=== PATIENT | female | born 1960 | race African-American/Black ===

== ENCOUNTER 2017-06-30 19:04 | Emergency (ER) ==
[2017-06-30 19:13] VITALS: BP 190/114; TEMP 98.5; BMI 43.7
[2017-06-30] MEDS ORDERED: NORCO 5-325 PO STA (19:32)
--- NOTE | 2017-06-30 19:35 | ED.PDOC ---
General ED Provider: Dr. LAURA TAVERA-ER Chief Complaint: Knee Pain/Injury Stated Complaint: my knee has been hurting since april Time Seen by Physician: 19:33 Mode of Arrival: Wheelchair Information Source: Patient, Family Exam Limitations: No limitations [facility] Nursing and Triage Documentation Reviewed and Agree: Yes Musculoskeletal Complaint Exam - Knee Pain Complaint/Exam Mechanism of Injury: Reports: No known trauma Onset/Duration: 2mos Symptoms Are: Still present Onset of Pain: Reports: Immediate Initial Severity: Mild Current Severity: Moderate Location: Reports: Discrete Character: Reports: Dull, Aching, Stiffness Aggravating: Reports: Movement, Weight bearing, Prolonged standing, Stairs Associated Signs and Symptoms: Reports: Swelling. Denies: Redness, Bruising, Fever, Weakness, Numbness, Tingling Able to Bear Weight: No Septic Arthritis Risk Factors: Reports: None Gout Risk Factors: Reports: >40 years old Knee Findings: Present: Swelling, Tenderness, Limited range of motion, Effusion [place] Test Positive: No Bigg Test Positive: No Limited Range of Motion: Present: Active, Passive, Flexion, Extension Differential Diagnoses: Internal Derangement Review of Systems - Review Of Systems Constitutional: Reports: No symptoms Eyes: Reports: No symptoms Ears, Nose, Mouth, Throat: Reports: No symptoms Respiratory: Reports: No symptoms Cardiac: Reports: No symptoms GI: Reports: No symptoms : Reports: No symptoms Musculoskeletal: Reports: Joint pain, Joint swelling Skin: Reports: No symptoms Neurological: Reports: No symptoms Endocrine: Reports: No symptoms Hematologic/Lymphatic: Reports: No symptoms All Other Systems: Reviewed and Negative Past Medical History - Past Medical History Previously Healthy: Yes Endocrine: Reports: None Cardiovascular: Reports: None Respiratory: Reports: None Hematological: Reports: None Gastrointestinal: Reports: None Genitourinary: Reports: None Neuro/Psych: Reports: None Musculoskeletal: Reports: None Cancer: Reports: None Last Menstrual Period: na - Surgical History General Surgical History: Reports: Unknown - Family History Family History: Reports: Unknown - Social History Smoking Status: Never smoker Hx Substance Use: Yes ([facility]) Alcohol Screening: Occasionally Lives: With family - Immunizations Tetanus Shot up to Date: No Physical Exam - Physical Exam Appearance: Well-appearing Pain Distress: Mild Eyes: GLORIA, EOMI, Conjunctiva clear ENT: Ears normal, Nose normal, Oropharynx normal Neck: Supple Respiratory: Airway patent, Breath sounds clear, Breath sounds equal, Respirations nonlabored Cardiovascular: RRR, Pulses normal, No rub, No murmur GI/: Soft, Nontender, No masses, Bowel sounds normal, No Organomegaly Musculoskeletal: Limited ROM Skin: Warm, Dry, Normal color Neurological: Sensation intact Psychiatric: Affect appropriate, Mood appropriate Interpretation - Radiology Interpretation Radiology Interpretation By: ED Physician Radiology Results: Negative Critical Care Note - Critical Care Note Total Time (mins): 0 Course - Course Orders, Labs, Meds: Orders Category Date Time Status CRUTCHES [ED CRUTCHES] .ONCE EMERGENCY 06/30/17 19:32 Active ED SPLINT APPLICATION .ONCE EMERGENCY 06/30/17 19:32 Active Amlodipine Besylate [Norvasc] MEDS 06/30/17 19:48 Discontinued 5 mg PO ONCE STA Clonidine HCl [Catapres] MEDS 06/30/17 19:48 Discontinued 0.1 mg PO ONCE STA Hydrocodone Bit/Acetaminophen [[place] 5-325] MEDS 06/30/17 19:32 Discontinued 1 tab PO ONCE STA KNEE, RIGHT 4 VIEWS Stat RADS 06/30/17 19:13 Taken Medications Discontinued Medications Generic Name Dose Route Start Last Admin Trade Name Freq PRN Reason Stop Dose Admin Acetaminophen/Hydrocodone Bitart 1 tab 06/30/17 19:32 06/30/17 19:43 [place] 5-325 PO 06/30/17 19:33 1 tab ONCE STA Administration Amlodipine Besylate 5 mg 06/30/17 19:48 06/30/17 19:53 Norvasc PO 06/30/17 19:49 5 mg ONCE STA Administration Clonidine 0.1 mg 06/30/17 19:48 06/30/17 19:52 Catapres PO 06/30/17 19:49 0.1 mg ONCE STA Administration Vital Signs: Temp Pulse Resp BP Pulse Ox 06/30/17 19:05 98.5 F 75 16 190/114 H 97 Departure - Departure Time of Disposition: 19:35 Disposition: HOME SELF-CARE Discharge Problem: Knee pain Instructions: Knee Pain (ED), Hypertension (ED) Condition: Good Pt referred to PMD for follow-up: Yes Additional Instructions: stay in brace and use crutches..norco 5mg q 4hrs #12--see your pcp and get MRi of knee scheduled--f/u bp with pcp this week Allergies/Adverse Reactions: Allergies No Known Allergies Allergy (Verified 06/30/17 19:18) Home Medications: Ambulatory Orders 1 [No Reported Medications] 06/30/17 Disposition Discussed With: Patient, Family
[2017-06-30] MEDS ORDERED: CATAPRES PO STA (19:48)
[2017-06-30] MEDS ORDERED: NORVASC PO STA (19:48)
--- NOTE | 2017-07-01 07:43 | DI ---
EXAM: RIGHT KNEE. HISTORY: Knee pain. FINDINGS: Right knee four view. No comparison. There is mild osteoarthritis involving the lateral and anterior compartments. No joint effusion is obvious. There is no fracture or dislocation. IMPRESSION: Early osteoarthritis.
== END 2017-06-30 20:08 | disposition home or self-care (01) ==
LOC: ED 19:04
DX: M25.561 Pain in right knee (principal); I10 Essential (primary) hypertension
CPT/HCPCS: 99283

== ENCOUNTER 2017-07-10 08:19 | Outpatient (CLI) ==
[2017-07-10 08:42] LABS: BASOPHILS % (AUTO) 0.3 % (0.0-3.0); HEMATOCRIT 39.7 % (37.0-47.0); HEMOGLOBIN 13.4 g/dl (12.0-16.0); IMMATURE GRANULOCYTE % (AUTO) 0.4 % (0.0-5.0); LYMPHOCYTES # (AUTO) 2.8 K/uL (0.60-3.4); LYMPHOCYTES % (AUTO) 23.8 (10.0-50.0); MEAN CORPUSCULAR HEMOGLOBIN 28.7 pg (27.0-31.0); MEAN CORPUSCULAR HGB CONC 33.8 (31.8-35.4); MONOCYTES # (AUTO) 0.5 K/uL (0.4-2.0); NEUTROPHILS # (AUTO) 8.4 K/ul (2.0-6.9); NEUTROPHILS % (AUTO) 71.5; PLATELET COUNT 233 10^3/uL (140-440); RED BLOOD COUNT 4.67 10^6/ul (4.20-5.40); WHITE BLOOD COUNT 11.73 K/ul (4.6-10.2)
[2017-07-10 09:22] LABS: ALBUMIN 3.2 g/dL (3.4-5.0); ALBUMIN/GLOBULIN RATIO 0.86; ANION GAP 10.9; BILIRUBIN,TOTAL 0.28 mg/dL (0.00-1.20); CALCIUM 9.3 mg/dL (8.2-10.2); CHOL/HDL RATIO 3.1 (4.5-5.5); CREATININE 0.75 mg/dL (0.60-1.30); POTASSIUM 3.9 mmol/L (3.5-5.10); TOTAL PROTEIN 6.9 g/dL (6.4-8.2); URIC ACID 4.3 mg/dL (2.4-6.0)
--- NOTE | 2017-07-10 11:31 | MRI ---
EXAM: MRI of the right knee without contrast COMPARISON: Right knee radiographs 06/30/2017. HISTORY: Right knee pain most pronounced laterally. No known injury. TECHNIQUE: Multiplanar noncontrast MR images of the right knee were acquired using a 1.2 [employer] magne t. The submitted images are mildly limited by patient motion artifact. FINDINGS: There is intrasubstance degeneration of the medial meniscus with a tear extending obliquel y to the inferior articular surface from the body through the posterior horn with small peripheral un dersurface flap. Parameniscal cyst measuring up to 6 x 4 mm in size peripherally at that level. Intrasubstance degeneration of the lateral meniscus. Markedly diminished size and irregularity of th e anterior horn/root of the lateral meniscus related to extensive degenerative type tear with mild bl unting of the free edge of the body as well. Extrusion of the body related to loss of hoop containme nt. Tear extending obliquely to the inferior articular surface at the level of the anterior horn and anterior body remnant. Intact anterior and posterior cruciate ligament fibers are identified. Scarring related to a chronic sprain of the medial collateral ligament proximally as well as involving the proximal fibers of the lateral collateral ligament. Posterolateral corner ligaments intact. Chronic sprain with scarring o f the iliotibial band. Mild patellar/quadriceps tendinosis with small patellar and tibial tuberosity bone spurs with minimal lateral subluxation of the patella. Sprains with scarring of the patellar r [place]. Subcutaneous edema most extensive anteriorly without a drainable fluid collection. Diffu se muscle atrophy. There are marginal osteophytes in all three compartments of the knee with small medial and lateral no tch osteophytes. There is moderate thinning of the cartilage in the lateral compartment most pronoun abigail along the central posterior weightbearing surface of the lateral tibial plateau with subchondral/ insufficiency fracture involving the posterior portion lateral tibial plateau measuring 7 x 5 mm in e xtent. Mild thinning of the cartilage in the medial compartment. Marked thinning and deep fissuring of the cartilage along the lateral facet and median ridge of the patella with full-thickness defects and subchondral cystic change. Deep fissuring/ulceration of the cartilage along the opposing articu lar surface of the trochlear groove as well. Small joint effusion, nonspecific. Popliteal cyst micha uring 6.4 x 2.6 x 1.0 cm with internal septations evidence of cyst leakage. IMPRESSION: 1. Flap tear of the medial meniscus with parameniscal cyst formation as described. 2. Complex tear of the lateral meniscus with degenerative component as described. 3. Tricompartmental osteoarthrosis with most severe changes in the lateral patellofemoral compartmen ts. 4. Subchondral/insufficiency fracture of the lateral tibial plateau. 5. Small joint effusion, nonspecific. Mildly complex popliteal cyst with cyst leakage. 6. Chronic sprain with scarring medial and lateral collateral ligaments. Chronic sprain with scarri ng of the iliotibial band. 7. Patellar/quadriceps tendinosis with enthesopathy. Sprains with scarring of the patellar retinacu la. Subcutaneous edema anteriorly.
== END 2017-07-10 08:20 | disposition home or self-care (01) ==
LOC: RAD 08:19
PROVIDERS: ATTEND Nurse Practitioner Family
DX: M25.561 Pain in right knee (principal); G89.29 Other chronic pain; I10 Essential (primary) hypertension
CPT/HCPCS: 36415; 80053; 80061; 84443; 84550; 85025

== ENCOUNTER 2017-10-16 08:32 | Outpatient (CLI) ==
--- NOTE | 2017-10-16 09:14 | DI ---
EXAM: Two views of the left tibia and fibula. History: Left leg pain. Findings: No acute fracture or dislocation. Grossly intact hardware within the distal fibula. Mild to moderate narrowing of the medial and lateral compartments at the knee. Moderate to severe narrow ing of the patellofemoral compartment with marginal sclerosis and osteophyte formation. There is sub cutaneous edema involving the lateral aspect of the leg. Impression: No acute osseous abnormality. Other findings as detailed above.
--- NOTE | 2017-10-16 09:15 | DI ---
EXAM: Three views of the left ankle. History: Left ankle pain. Findings: Grossly intact hardware within the distal fibula. No acute fracture or dislocation. Mode rate calcaneal enthesiopathy. Mild polyarticular joint space narrowing. Subcutaneous edema seen ir[place] ng the lateral aspect of the leg. Impression: No acute osseous abnormality. Other findings as detailed above.
--- NOTE | 2017-10-16 09:16 | DI ---
EXAM: Three views of the left foot. History: Left foot pain. Findings: No acute fracture or dislocation. Grossly intact hardware within the distal fibula. Anderson ux valgus deformity. Mild to moderate narrowing of the first MTP joint with small osteophytes. Bord josé miguel pes planus deformity. Mild degenerative changes at the mid foot with dorsal osteophytes. Mod erate calcaneal enthesiopathy Impression: 1. No acute osseous abnormality. 2. Hallux valgus deformity. 3. Other findings as detailed above.
== END 2017-10-16 08:33 | disposition home or self-care (01) ==
LOC: RAD 08:32
PROVIDERS: ATTEND Nurse Practitioner Family
DX: M79.605 Pain in left leg (principal); Z96.7 Presence of other bone and tendon implants; Z98.890 Other specified postprocedural states; M79.672 Pain in left foot; M25.572 Pain in left ankle and joints of left foot

== ENCOUNTER 2018-06-20 14:02 | Emergency (ER) | payer OTHER ==
[2018-06-20 14:06] VITALS: BP 158/71; TEMP 97.4; BMI 42.4
[2018-06-20] MEDS ORDERED: TORADOL IM STA (14:36)
--- NOTE | 2018-06-20 14:40 | ED.PDOC ---
General ED Provider: Dr. CHARISSA MATT Chief Complaint: Knee Pain/Injury Stated Complaint: Patient is a 57 year old female who comes to the ER with complaints of Left knee pain after she injured it two weeks ago when she fell in a hole. States she is able to bear weight but pain is worse. Has not sought any help for this recently. The Last Medication she took was Aleve yesterday. Time Seen by Physician: 14:37 Mode of Arrival: Walk-In Information Source: Patient Primary Care Provider: JOSÉ MIGUEL VERAS Nursing and Triage Documentation Reviewed and Agree: Yes Does patient meet sepsis criteria?: No System Inflammatory Response Syndrome: Not Applicable Sepsis Protocol: For patient's 13 years and over: Temp is 96.8 and below OR 101 and greater Pulse >90 BPM Resp >20/minute Acutely Altered Mental Status Are patient's symptoms suggestive of a new infection, such as: -Pneumonia -Skin, Soft Tissue -Endocarditis -UTI -Bone, Joint Infection -Implantable Device -Acute Abdominal Infection -Wound Infection -Meningitis -Blood Stream Catheter Infection -Unknown Musculoskeletal Complaint Exam - Knee Pain Complaint/Exam Mechanism of Injury: Reports: Trauma (two weeks ago ) Onset/Duration: 2 weeks Symptoms Are: Still present Onset of Pain: Reports: Immediate, Post accident Initial Severity: Moderate Current Severity: Moderate Location: Reports: Diffuse Character: Reports: Aching, Throbbing Alleviating: Reports: None Aggravating: Reports: Movement, Weight bearing Associated Signs and Symptoms: Denies: Swelling, Redness, Bruising, Fever, Weakness, Numbness, Tingling Able to Bear Weight: Yes (but has pain ) Related History: Reports: Similar episode (to the right knee ) Septic Arthritis Risk Factors: Reports: None Gout Risk Factors: Reports: >40 years old. Denies: Male Related Surgical History: Reports: Right Knee Knee Findings: Present: Tenderness, Limited range of motion (to full extension) [place] Test Positive: No Bigg Test Positive: No Limited Range of Motion: Present: Passive Knee Picture: 1 - pain and tenderness Differential Diagnoses: Tendonitis, Sprain, Strain Review of Systems - Review Of Systems Constitutional: Reports: No symptoms (left knee ) Eyes: Reports: No symptoms Ears, Nose, Mouth, Throat: Reports: No symptoms Respiratory: Reports: No symptoms Cardiac: Reports: No symptoms GI: Reports: No symptoms : Reports: No symptoms Musculoskeletal: Reports: Joint pain Skin: Reports: No symptoms Neurological: Reports: No symptoms Endocrine: Reports: No symptoms Hematologic/Lymphatic: Reports: No symptoms All Other Systems: Reviewed and Negative Past Medical History - Past Medical History Previously Healthy: Yes Endocrine: Reports: None Cardiovascular: Reports: None Respiratory: Reports: None Hematological: Reports: None Gastrointestinal: Reports: None Genitourinary: Reports: None Neuro/Psych: Reports: None Musculoskeletal: Reports: None Cancer: Reports: None Last Menstrual Period: n/a - Surgical History General Surgical History: Reports: Unknown - Family History Family History: Reports: Unknown - Social History Smoking Status: Never smoker Hx Substance Use: Yes ([facility]) Alcohol Screening: Occasionally Physical Exam - Physical Exam Appearance: Obese Ill-appearing: Mild Pain Distress: Severe Eyes: GLORIA, EOMI, Conjunctiva clear ENT: Ears normal, Nose normal, Oropharynx normal Respiratory: Airway patent, Breath sounds clear, Breath sounds equal, Respirations nonlabored Cardiovascular: RRR, Pulses normal, No rub, No murmur GI/: Soft, Nontender, No masses, Bowel sounds normal, No Organomegaly Musculoskeletal: Limited ROM Skin: Warm, Dry, Normal color Neurological: Sensation intact, Motor intact, Reflexes intact, Cranial nerves intact, Alert, Oriented Psychiatric: Anxious Interpretation - Radiology Interpretation Radiology Interpretation By: ED Physician Radiology Results: No acute changes (no acute fracture. Severe osteoarthritis) Exam Interpreted: Other (right knee x ray ) Critical Care Note - Critical Care Note Total Time (mins): 0 Course - Course Orders, Labs, Meds: Orders Category Date Time Status TOLU [ED TOLU WRAP] .ONCE EMERGENCY 06/20/18 14:56 Active Ketorolac Tromethamine [Toradol] MEDS 06/20/18 14:36 Discontinued 60 mg IM ONCE STA KNEE, LEFT 4 VIEWS Stat RADS 06/20/18 14:35 Taken Medications Discontinued Medications Generic Name Dose Route Start Last Admin Trade Name Freq PRN Reason Stop Dose Admin Ketorolac Tromethamine 60 mg 06/20/18 14:36 06/20/18 14:57 Toradol IM 06/20/18 14:37 60 mg ONCE STA Administration Vital Signs: Temp Pulse Resp BP Pulse Ox 06/20/18 14:03 97.4 F L 71 16 158/71 H 98 Departure - Departure Time of Disposition: 14:50 Disposition: HOME SELF-CARE Discharge Problem: Injury of knee Instructions: Knee Pain (ED) Condition: Stable Pt referred to PMD for follow-up: Yes IPMP verified?: No Additional Instructions: Take Medications as prescribed Follow up with PCP in 3 days for MRI and Therapy orders. Use Tolu wrap Prescriptions: Hydrocodone/Acetaminophen [[employer] 5-325 Tablet] 1 tab PO Q6HR PRN #12 tablet PRN Reason: PAIN Meloxicam [Mobic] 15 mg PO DAILY LAB PRN #30 tablet PRN Reason: Knee injury Allergies/Adverse Reactions: Allergies tramadol Allergy (Severe, Unverified 07/16/17 10:39) Patient states it makes her hair fall out. Home Medications: Ambulatory Orders Hydrocodone/Acetaminophen [[employer] 5-325 Tablet] 1 tab PO Q6HR PRN #12 tablet Meloxicam [Mobic] 15 mg PO DAILY LAB PRN #30 tablet 06/20/18 Disposition Discussed With: Patient, Family
--- NOTE | 2018-06-21 06:52 | DI ---
EXAM: Four views of the left knee HISTORY: Pain COMPARISON: 10/16/2017 FINDINGS: Tricompartmental marginal osteophyte formation is seen, most prominently involving the patellofemoral compartment. A 4 mm ossicle projects over the medial compartment on the PA view. There is a trace j oint effusion. No fracture or dislocation is identified. IMPRESSION: No acute osseous abnormality. Tricompartmental degenerative joint disease, up to severe at the patellofemoral compartment. Trace joint effusion.
== END 2018-06-20 16:07 | disposition home or self-care (01) ==
LOC: ED 14:02
DX: M25.562 Pain in left knee (principal); W17.2XXA Fall into hole, initial encounter
CPT/HCPCS: 96372; 99283

== ENCOUNTER 2018-07-19 21:52 | Emergency (ER) ==
[2018-07-19 22:35] VITALS: BP 140/85; TEMP 98.3; BMI 43.4
[2018-07-19] MEDS ORDERED: DECADRON 4 MG/ML SDV IM STA (22:59)
[2018-07-19] MEDS ORDERED: NORCO 7.5-325 PO STA (22:59)
--- NOTE | 2018-07-19 23:03 | ED.PDOC ---
General ED Provider: Dr. CHARISSA MATT Chief Complaint: Foot Pain/Injury Stated Complaint: Patient states that she woke up yesterday, unable to bear weight on right heel. Rates the pain at 7/10. Time Seen by Physician: 22:52 Mode of Arrival: Wheelchair Information Source: Patient Exam Limitations: No limitations Primary Care Provider: JOSÉ MIGUEL VERAS Nursing and Triage Documentation Reviewed and Agree: Yes Does patient meet sepsis criteria?: No System Inflammatory Response Syndrome: Not Applicable Sepsis Protocol: For patient's 13 years and over: Temp is 96.8 and below OR 101 and greater Pulse >90 BPM Resp >20/minute Acutely Altered Mental Status Are patient's symptoms suggestive of a new infection, such as: -Pneumonia -Skin, Soft Tissue -Endocarditis -UTI -Bone, Joint Infection -Implantable Device -Acute Abdominal Infection -Wound Infection -Meningitis -Blood Stream Catheter Infection -Unknown Musculoskeletal Complaint Exam - Ankle/Foot Complaint/Exam Location of Injury: Reports: Right Mechanism of Injury: Reports: No known trauma Onset/Duration: 1 day Symptoms Are: Reports: Still present Initial Severity: Moderate Current Severity: Severe Location: Reports: Discrete (Heel ) Character: Reports: Aching, Throbbing Aggravating: Reports: Weight bearing, Prolonged standing Able to Bear Weight: Yes Associated Signs and Symptoms: Denies: Swelling, Redness, Bruising, Fever, Weakness, Numbness, Tingling Related History: Denies: Similar episode, Occupational injury Gout Risk Factors: Reports: None Related Surgical History: Reports: None Lower Extremity Findings: Present: Tenderness ([place] aspect of the heel ) Tenderness: Present: Heel Limited Range of Motion: Present: Dorsiflexion, Plantarflexion Ankle/Foot Picture: 1 - area of pain and severe tendeness Differential Diagnosis: Sprain, Strain, Tendonitis Review of Systems - Review Of Systems Constitutional: Reports: No symptoms Eyes: Reports: No symptoms Ears, Nose, Mouth, Throat: Reports: No symptoms Respiratory: Reports: No symptoms Cardiac: Reports: No symptoms GI: Reports: No symptoms : Reports: No symptoms Musculoskeletal: Reports: Joint pain Skin: Reports: No symptoms Neurological: Reports: Anxiety Endocrine: Reports: No symptoms Hematologic/Lymphatic: Reports: No symptoms All Other Systems: Reviewed and Negative Past Medical History - Past Medical History Previously Healthy: Yes Endocrine: Reports: None Cardiovascular: Reports: None Respiratory: Reports: None Hematological: Reports: None Gastrointestinal: Reports: None Genitourinary: Reports: None Neuro/Psych: Reports: None Musculoskeletal: Reports: None Cancer: Reports: None Last Menstrual Period: 2016 - Surgical History General Surgical History: Reports: Unknown - Family History Family History: Reports: Unknown - Social History Smoking Status: Never smoker Hx Substance Use: Yes ([facility]) Alcohol Screening: Occasionally - Immunizations Tetanus Shot up to Date: Yes Physical Exam - Physical Exam Appearance: Well-appearing, Obese Pain Distress: Moderate Neck: Supple Respiratory: Airway patent, Breath sounds clear, Breath sounds equal, Respirations nonlabored Cardiovascular: RRR, Pulses normal, No rub, No murmur Skin: Warm Neurological: Alert, Oriented Psychiatric: Anxious Interpretation - Radiology Interpretation Radiology Interpretation By: Radiologist Radiology Results: Positive Exam Interpreted: Other (enthesopathy with calcanial spur ) Critical Care Note - Critical Care Note Total Time (mins): 0 Course - Course Orders, Labs, Meds: Orders Category Date Time Status Dexamethasone 4 mg/ml Inj [Decadron 4 mg/ml Sdv] MEDS 07/19/18 22:59 Discontinued 8 mg IM ONCE STA Hydrocodone Bit/Acetaminophen [[place] 7.5-325] MEDS 07/19/18 22:59 Discontinued 1 tab PO ONCE STA HEEL, RIGHT (CALCANEUS) Stat RADS 07/19/18 23:00 Completed Medications Discontinued Medications Generic Name Dose Route Start Last Admin Trade Name Paul PRN Reason Stop Dose Admin Hydrocodone Bitart/Acetaminophen 1 tab 07/19/18 22:59 07/19/18 23:20 [place] 7.5-325 PO 07/19/18 23:00 1 tab ONCE STA Administration Dexamethasone Sodium Phosphate 8 mg 07/19/18 22:59 07/19/18 23:20 Decadron 4 Mg/Ml Sdv IM 07/19/18 23:00 8 mg ONCE STA Administration Vital Signs: Temp Pulse Resp BP Pulse Ox 07/19/18 22:28 98.3 F 90 20 140/85 96 Departure - Departure Time of Disposition: 23:44 Disposition: HOME SELF-CARE Discharge Problem: Enthesopathy of right ankle Heel spur Qualifiers: Laterality: right Qualified Code(s): M77.31 - Calcaneal spur, right foot Instructions: Plantar Fasciitis (ED), Heel Spur (ED) Condition: Stable Pt referred to PMD for follow-up: Yes IPMP verified?: No Additional Instructions: Take Medications as needed for pain Follow up with PCP in 3 days Prescriptions: Hydrocodone Bit/Acetaminophen [[place] 5-325] 1 each PO Q6HR PRN #15 tablet PRN Reason: severe pain Prednisone 20 mg PO DAILYWM #5 tablet Allergies/Adverse Reactions: Allergies tramadol Allergy (Severe, Verified 07/19/18 22:36) Unknown Patient states it makes her hair fall out. meloxicam [From Mobic] Allergy (Mild, Verified 07/19/18 22:36) hair loss Home Medications: Ambulatory Orders Hydrocodone Bit/Acetaminophen [[place] 5-325] 1 each PO Q6HR PRN #15 tablet Prednisone 20 mg PO DAILYWM #5 tablet 07/19/18 Disposition Discussed With: Patient, Family
--- NOTE | 2018-07-19 23:36 | DI ---
EXAM: Right calcaneus, two views, 07/19/2018 HISTORY: Heel pain COMPARISON: None. FINDINGS / IMPRESSION: There is enthesopathy at the Achilles insertion site. Prominent plantar calc aneal spur. Chronic osteoarthritic degenerative change throughout the ankle and midfoot. No acute fracture or subluxation No acute osseous abnormality.
== END 2018-07-20 00:04 | disposition home or self-care (01) ==
LOC: ED 22:26
DX: M77.31 Calcaneal spur, right foot (principal); M77.9 Enthesopathy, unspecified
CPT/HCPCS: 96372; 99282

== ENCOUNTER 2018-07-28 12:27 | Outpatient (CLI) | END 2018-07-28 12:28 | disposition home or self-care (01) | LOC: RHC-LAB 12:27 | PROVIDERS: ATTEND Nurse Practitioner Family | DX: M17.11 Unilateral primary osteoarthritis, right knee (principal); I10 Essential (primary) hypertension; E66.9 Obesity, unspecified | CPT/HCPCS: 36415; 80053; 80061; 82306; 84443; 85025 ==

== ENCOUNTER 2019-02-22 11:15 | Outpatient (CLI) | END 2019-02-22 11:16 | disposition home or self-care (01) | LOC: RHC-LAB 11:15 | PROVIDERS: ATTEND Nurse Practitioner Family | DX: E55.9 Vitamin D deficiency, unspecified (principal); Z00.00 Encounter for general adult medical examination without abnormal findings; I10 Essential (primary) hypertension; E66.9 Obesity, unspecified | CPT/HCPCS: 36415; 80053; 80061; 82306; 85025 ==

== ENCOUNTER 2023-12-09 12:59 | Inpatient (IN) ==
--- NOTE | 2023-12-09 13:55 | ED.PDOC ---
General ED Provider: Dr. CHARISSA MATT Chief Complaint: Shortness of Air Stated Complaint: Comes to the ER with cough congestion nausea vomiting and diarrhea with loss of taste for the past 2 to 3 days. She states that [place] all [place]. She feels like when she had COVID couple years ago. Time Seen by Provider: 12/09/23 13:27 Information Source: Patient Primary Care Provider: AMIE LUNA APRN Nursing and Triage Documentation Reviewed and Agree: Yes Does Patient Take Opioids?: No Is Patient Opioid Naive?: No What is Opioid Naive?: *Opioid Naive implies the patient is not already taking opioids or not chronically receiving opioids on a daily basis. *PRN dosing is not "usually" associated with tolerance. *Patients are at higher risk of over-sedation and aspiration. Is Patient Opioid Tolerant?: No What is Opioid Tolerant?: *Opioid Tolerance implies less than the expected response to an opioid. *Acquired tolerance is defined by the patient taking 60mg of oral morphine daily (or equianalgesic dose of another opioid) for 1 week or more. *Often associated with chronic pain. *May take more than usual dose to achieve desired pain control. Respiratory Complaint Exam Shortness of Air Complaint/Exam Onset/Duration: 3 days Symptoms Are: Still present Timing: Constant Initial Severity: Moderate Current Severity: Severe Character: Reports Dyspnea at rest Aggravating: Reports None Associated Signs and Symptoms: Reports Cough Recent Stress Test: No Recent Echo/LV Function: No Diminished Breath Sounds: No Unable to Speak Full Sentences: No Fatigue: No Leg Swelling: No Ang's Sign Present: No Differential Diagnoses: Pneumonia and Bronchitis Quality Indicator For Non-Traumatic Chest Pain/Syncope: EKG Performed Respiratory Complaint/Exam Onset/Duration: 3 days Symptoms Are: Still present Timing: Constant Initial Severity: Moderate Current Severity: Severe Character: Reports Productive cough Associated Signs and Symptoms: Reports Dyspnea and Vomiting Review of Systems Review Of Systems Constitutional: Reports Loss of appetite Ears, Nose, Mouth, Throat: Reports Other (Loss of taste) Respiratory: Reports Cough and Shortness of Breath Cardiac: Reports Chest pain (with inspiration.) GI: Reports Diarrhea, Nausea and Vomiting Musculoskeletal: Reports No symptoms Skin: Reports No symptoms Neurological: Reports Anxiety Endocrine: Reports No symptoms All Other Systems: Reviewed and Negative [facility] Medical History Bone fracture left leg/foot/ankle fx. Has rods/pins/plate T14.8XXA - Other injury of unspecified body region, initial encounter (ICD- 10) Family History Mother RA (rheumatoid arthritis) Diabetes FATHER Hypertension Social History Smoking and tobacco status: Never smoker Surgical History History of tubal ligation Z98.51 - Tubal ligation status (ICD-10) Status post tonsillectomy Z90.89 - Acquired absence of other organs (ICD-10) Ganglion cyst right wrist History of orthopedic surgery left leg/foot/ankle fx. Has rods/pins/plate Z98.890 - Other specified postprocedural states (ICD-10) Female Reproductive History Menstrual Hx Hysterectomy: No Hx Tubal Ligation: No Physical Exam Physical Exam Appearance: Reports Ill-appearing and Obese Pain Distress: Moderate ENT: Reports Nose normal Respiratory: Reports Rhonchi and Wheezes Cardiovascular: Reports RRR, Pulses normal and No rub GI/: Reports Soft, Nontender and No masses Musculoskeletal: Reports Normal strength and ROM intact Skin: Reports Warm and Dry Neurological: Reports Motor intact, Alert and Oriented Psychiatric: Reports Anxious Interpretation EKG Interpretation EKG Interpretation By: ED Physician Time of EKG #1: 16:42 Rate: Normal Rhythm: Sinus Ectopy: None [place]: NL ST Segment: Normal Interpretation: Normal sinus rhythm normal EKG Critical Care Note Critical Care Note Total Critical Care Time (mins): 30 Comments: Managing respiratory symptoms with wheezing and rhonchi and also managing respiratory failure with hypoxemia with oxygen and breathing treatments. Providing IV fluids and nausea medications. Course Course 12/09/23 14:36 12/09/23 14:36 Orders, Labs, Meds: Lab Review 12/09/23 12/09/23 12/09/23 13:25 14:36 15:00 WBC 15.18 H RBC 5.55 H Hgb 15.6 Hct 47.4 H MCV 85.4 MCH 28.1 MCHC 32.9 RDW Coeff of Trey 14.8 Plt Count 161 Immature Gran % (Auto) 0.3 Neut % (Auto) 77.8 H Lymph % (Auto) 11.8 [place] % (Auto) 10.0 Eos % (Auto) 0.0 Baso % (Auto) 0.1 Neut # (Auto) 11.8 H Lymph # (Auto) 1.8 [place] # (Auto) 1.5 Eos # (Auto) 0.0 Baso # (Auto) 0.0 Immature Gran # (Auto) 0.1 Puncture Site Rrad Base Excess -1.8 O2 Saturation 93.5 L ABG pH 7.44 ABG pCO2 33.0 L ABG pO2 66.0 L ABG HCO3 22.4 ABG Total CO2 23.4 Nathanael Test Pos Hemoglobin 1.3 Oxyhemoglobin 91.7 L Carboxyhemoglobin 1.8 H Total Hemoglobin 15.9 FiO2 % 21.0 Sodium 133.7 L Potassium 3.46 L Chloride 102.8 Carbon Dioxide 21.5 L Anion Gap 12.86 BUN 19.2 H Creatinine 0.85 Estimated GFR (MDRD) 81.00 BUN/Creatinine Ratio 22.58 Glucose 102.8 Lactic Acid 0.86 Calcium 9.47 Total Bilirubin 0.75 AST 44.7 H ALT 20.7 Alkaline Phosphatase 84.2 Total Protein 8.03 Albumin 4.23 Globulin 3.80 Albumin/Globulin Ratio 1.11 Procalcitonin 0.66 H Urine Color Urine Clarity Urine pH Ur Specific Bow Urine Protein Urine Glucose (UA) Urine Ketones Urine Blood Urine Nitrite Urine Bilirubin Urine Urobilinogen Ur Leukocyte Esterase Urine Microscopic RBC Urine Microscopic WBC Ur Squamous Epith Cells Ur Renal Epithelial Cell Urine Bacteria Hyaline Casts Fine Granular Casts Other Casts Urine Mucus Influ A Molecular Assay Positive by naat H Influ B Molecular Assay Negative by naat RSV Antigen Negative by naat SARS CoV-2 RNA Rapid LUZMA Negative 12/09/23 16:00 WBC RBC Hgb Hct MCV MCH MCHC RDW Coeff of Trey Plt Count Immature Gran % (Auto) Neut % (Auto) Lymph % (Auto) [place] % (Auto) Eos % (Auto) Baso % (Auto) Neut # (Auto) Lymph # (Auto) [place] # (Auto) Eos # (Auto) Baso # (Auto) Immature Gran # (Auto) Puncture Site Base Excess O2 Saturation ABG pH ABG pCO2 ABG pO2 ABG HCO3 ABG Total CO2 Nathanael Test Hemoglobin Oxyhemoglobin Carboxyhemoglobin Total Hemoglobin FiO2 % Sodium Potassium Chloride Carbon Dioxide Anion Gap BUN Creatinine Estimated GFR (MDRD) BUN/Creatinine Ratio Glucose Lactic Acid Calcium Total Bilirubin AST ALT Alkaline Phosphatase Total Protein Albumin Globulin Albumin/Globulin Ratio Procalcitonin Urine Color Mari Urine Clarity Slightly Urine pH 5.5 Ur Specific Bow >=1.030 Urine Protein 3+ H Urine Glucose (UA) Trace H Urine Ketones Trace H Urine Blood Trace-intact H Urine Nitrite Negative Urine Bilirubin 2+ H Urine Urobilinogen 1.0 H Ur Leukocyte Esterase Negative Urine Microscopic RBC 0-2 Urine Microscopic WBC 20-30 Ur Squamous Epith Cells 2-5 Ur Renal Epithelial Cell 0-2 Urine Bacteria 1+ Hyaline Casts 10-20 Fine Granular Casts 2-5 Other Casts 0-2 Urine Mucus Trace Influ A Molecular Assay Influ B Molecular Assay RSV Antigen SARS CoV-2 RNA Rapid LUZMA Orders Category Date Time Status ADMIT OBSERVATION [PLACE PATIENT OBSERVATION] .TO ADMISSION 12/09/23 16:29 Active MEDSURG (MONITORED BED) ABG DRAW REQUEST Stat CARDIO 12/09/23 14:24 Completed EKG-(ED ONLY) Stat CARDIO 12/09/23 16:38 Ordered NEBULIZER TREATMENT Routine CARDIO 12/09/23 16:36 Ordered NEBULIZER TREATMENT Stat CARDIO 12/09/23 14:23 Completed OXYGEN Routine CARDIO 12/09/23 16:35 Ordered ACTIVITY .Up With Assistance CARE 12/09/23 16:34 Active GIVE HS SNACK 2100 CARE 12/09/23 16:35 Active INTAKE & OUTPUT Q8HR CARE 12/09/23 16:34 Active IP: INSERT SALINE LOCK ONCE CARE 12/09/23 16:29 Active TELEMETRY MONITORING TELE CARE 12/09/23 16:29 Active VITAL SIGNS Q4HR CARE 12/09/23 16:35 Active ADA 1800 JOSH. DIET DIETARY 12/09/23 Dinner Ordered HS SNACK DIETARY 12/09/23 Dinner Ordered ED APPLY O2 .ONCE EMERGENCY 12/09/23 14:21 Active ED ENROLLMENT COORDINATOR APPLIED .ONCE EMERGENCY 12/09/23 14:21 Active ED IV/MEDIPORT/POWERPORT .ONCE EMERGENCY 12/09/23 14:21 Active ED VITAL SIGNS Q1HR EMERGENCY 12/09/23 14:21 Active ABG COOX Stat LAB 12/09/23 15:00 Completed BLOOD CULTURE (ED ONLY) Stat LAB 12/09/23 14:43 Received CBC W/ AUTO DIFF DAILY@0600 LAB 12/10/23 06:00 Ordered CBC W/ AUTO DIFF DAILY@0600 LAB 12/11/23 06:00 Ordered CBC W/ AUTO DIFF Stat LAB 12/09/23 14:36 Completed COMPREHENSIVE METABOLIC PANEL DAILY@0600 LAB 12/10/23 06:00 Ordered COMPREHENSIVE METABOLIC PANEL DAILY@0600 LAB 12/11/23 06:00 Ordered COMPREHENSIVE METABOLIC PANEL Stat LAB 12/09/23 14:36 Completed COVID [SARS COV-2 RNA RAPID LUZMA] Stat LAB 12/09/23 13:25 Completed FLU A & B MOLECULAR [FLU A/B MOLECULAR] Stat LAB 12/09/23 13:25 Completed LACTIC ACID Stat LAB 12/09/23 14:36 Completed PROCALCITONIN DAILY LAB 12/09/23 14:36 Received PROCALCITONIN DAILY LAB 12/10/23 16:45 Ordered PROCALCITONIN DAILY LAB 12/11/23 16:45 Ordered PROCALCITONIN Stat LAB 12/09/23 14:36 Completed RSV Stat LAB 12/09/23 13:25 Completed URINALYSIS C & S IF INDICATED Stat LAB 12/09/23 16:00 Completed URINE CULTURE Stat LAB 12/09/23 16:00 Received 0.9 % Sodium Chloride [Saline Flush] Meds 12/09/23 14:21 Active 1 syr IVF PRN PRN Acetaminophen [Tylenol] Meds 12/09/23 16:34 Ordered 650 mg PO Q4H PRN Ipratropium/Albuterol Neb [Duoneb] Meds 12/09/23 14:23 Discontinued 3 ml NEB ONCE STA Ipratropium/Albuterol Neb [Duoneb] Meds 12/09/23 18:00 Ordered 3 ml NEB RTQ6H Methylprednisolone Sod Succ/Pf [Solu-Medrol 125 mg] Meds 12/09/23 14:23 Discontinued 125 mg IVP ONCE STA Methylprednisolone Sod Succ/Pf [Solu-Medrol 40 mg] Meds 12/09/23 21:00 Ordered 40 mg IVP Q8HR Ondansetron HCl/Pf [Zofran 4 mg/2 ml] Meds 12/09/23 14:21 Discontinued 4 mg IVP ONCE STA Ondansetron HCl/Pf [Zofran 4 mg/2 ml] Meds 12/09/23 16:34 Ordered 4 mg IVP Q6H PRN Oseltamivir Phosphate Capsule [Tamiflu Capsule] Meds 12/09/23 15:53 Discontinued 75 mg PO ONCE ONE Oseltamivir Phosphate Capsule [Tamiflu Capsule] Meds 12/09/23 21:00 Ordered 75 mg PO Q12HR Potassium Chloride [K-Dur] Meds 12/09/23 16:34 Once 40 meq PO ONCE ONE Ringers Lactated Solution [Lactated Ringers] 1,000 ml Meds 12/09/23 17:00 Ordered IV 100 mls/hr Ringers Lactated Solution [Lactated Ringers] 1,000 ml Meds 12/09/23 14:21 Discontinued IV BOLUS RESUSCITATION STATUS Routine OTHERS 12/09/23 16:29 Ordered CHEST, 1V AP ONLY Stat RADS 12/09/23 14:21 Completed Medications Generic Name Dose Route Start Last Admin Trade Name Freq PRN Reason Stop Dose Admin Acetaminophen 650 mg 12/09/23 16:34 Acetaminophen 325 Mg Tablet PO Q4H PRN Mild Pain Albuterol/Ipratropium 3 ml 12/09/23 18:00 Ipratropium/Albuterol Vial.Edilma NEB RTQ6H VALARIE Lactated Ringer's 1,000 mls @ 100 mls/hr 12/09/23 17:00 Lactated Ringers IV .Q10H VALARIE Methylprednisolone Sodium Succinate 40 mg 12/09/23 21:00 Methylprednisolone Sod Succ/Pf 40 Mg/Ml Vial IVP Q8HR VALARIE Ondansetron HCl 4 mg 12/09/23 16:34 Ondansetron Hcl/Pf 4 Mg/2 Ml Sdv IVP Q6H PRN Nausea / Vomiting Oseltamivir Phosphate 75 mg 12/09/23 21:00 Oseltamivir Phosphate 75 Mg Capsule PO Q12HR VALARIE Potassium Chloride 40 meq 12/09/23 16:34 Potassium Chloride 20 Meq Tab PO 12/09/23 16:35 ONCE ONE Sodium Chloride 1 syr 12/09/23 14:21 12/09/23 14:53 0.9% Sodium Chloride 10 Ml Disp.Syrin IVF 1 syr PRN PRN Administration To flush IV Discontinued Medications Generic Name Dose Route Start Last Admin Trade Name Freq PRN Reason Stop Dose Admin Albuterol/Ipratropium 3 ml 12/09/23 14:23 12/09/23 14:40 Ipratropium/Albuterol Vial.Edilma SANCHEZ 12/09/23 14:24 3 ml ONCE STA Administration Lactated Ringer's 1,000 mls @ 1,000 mls/hr 12/09/23 14:21 12/09/23 16:16 Lactated Ringers IV 12/09/23 15:20 Infused BOLUS STA Infusion Methylprednisolone Sodium Succinate 125 mg 12/09/23 14:23 12/09/23 14:52 Methylprednisolone Sod Succ/Pf 125 Mg/2 Ml Vial IVP 12/09/23 14:24 125 mg ONCE STA Administration Ondansetron HCl 4 mg 12/09/23 14:21 12/09/23 14:51 Ondansetron Hcl/Pf 4 Mg/2 Ml Sdv IVP 12/09/23 14:22 4 mg ONCE STA Administration Oseltamivir Phosphate 75 mg 12/09/23 15:53 12/09/23 16:14 Oseltamivir Phosphate 75 Mg Capsule PO 12/09/23 15:54 75 mg ONCE ONE Administration Vital Signs: Temp Pulse Resp BP Pulse Ox O2 Flow Rate 12/09/23 14:57 2 12/09/23 13:25 94 20 135/85 96 12/09/23 13:14 98.4 F 118 H 22 H 171/117 H 95 Discharge Plan Discharge Patient Disposition: PLACED OBSERVATION Discharge Problem: Influenza A, Acute hypoxemic respiratory failure Did you review [place] SCIENCE TECHNICIAN for ALL controlled substances?: Not Applicable ED Provider: CHARISSA MATT Condition: Stable Physician Progress Note: []
[2023-12-09 14:05] LABS: MOLECULAR FLU A POSITIVE BY NAAT (NEGATIVE); MOLECULAR FLU B NEGATIVE BY NAAT (NEGATIVE); RSV MOLECULAR NEGATIVE BY NAAT (NEGATIVE); SARS COV-2 RNA RAPID NAAT NEGATIVE (NEGATIVE)
[2023-12-09] MEDS: DUONEB NEB STA (14:40)
[2023-12-09 14:47] LABS: BASOPHILS % (AUTO) 0.1 % (0.0-3.0); HEMATOCRIT 47.4 % (37.0-47.0); HEMOGLOBIN 15.6 g/dl (12.0-16.0); IMMATURE GRANULOCYTE # (AUTO) 0.1 (0.0-1.0); IMMATURE GRANULOCYTE % (AUTO) 0.3 % (0.0-5.0); LYMPHOCYTES # (AUTO) 1.8 K/uL (0.60-3.4); LYMPHOCYTES % (AUTO) 11.8 (10.0-50.0); MEAN CORPUSCULAR HEMOGLOBIN 28.1 pg (27.0-31.0); MEAN CORPUSCULAR HGB CONC 32.9 (31.8-35.4); MEAN CORPUSCULAR VOLUME 85.4 fl (81.0-99.0); MONOCYTES # (AUTO) 1.5 K/uL (0.4-2.0); NEUTROPHILS # (AUTO) 11.8 K/ul (2.0-6.9); NEUTROPHILS % (AUTO) 77.8 % (42.2-75.2); PLATELET COUNT 161 10^3/uL (140-440); RDW COEFFICIENT OF VARIATION 14.8 % (11.6-14.8); RED BLOOD COUNT 5.55 10^6/ul (4.20-5.40); WHITE BLOOD COUNT 15.18 K/ul (4.6-10.2)
[2023-12-09] MEDS: ZOFRAN 4 MG/2 ML IVP STA (14:51)
[2023-12-09] MEDS: SOLU-MEDROL 125 MG IVP STA (14:52)
[2023-12-09] MEDS: LACTATED RINGERS 1,000 ML IV STA (14:52)
[2023-12-09 15:02] LABS: ALANINE AMINOTRANSFERASE 20.7 U/L (0-35); ALBUMIN 4.23 g/dL (3.5-5.0); ALKALINE PHOSPHATASE 84.2 U/L (53-141); ASPARTATE AMINO TRANSFERASE 44.7 U/L (14-36); BILIRUBIN,TOTAL 0.75 mg/dL (0.2-1.3); BLOOD UREA NITROGEN 19.2 mg/dL (7-17); CALCIUM 9.47 mg/dL (8.4-10.2); CARBON DIOXIDE 21.5 mmol/L (22-30.0); CHLORIDE 102.8 mmol/L (98-107); CREATININE 0.85 mg/dL (0.60-1.30); GLUCOSE 102.8 mg/dL (74-106); POTASSIUM 3.46 mmol/L (3.5-5.1); SODIUM 133.7 mmol/L (134.5-145); TOTAL PROTEIN 8.03 g/dL (6.3-8.2)
[2023-12-09 15:11] LABS: ABG O2 HGB 91.7 % (95-100); ABG PH 7.44 (7.35-7.45); BEecf -1.8 (-2.0-3.0); COHb 1.8 (0.5-1.5); HCO3 22.4 (21-28); MetHb 1.3 (0-1.5); TCO2 23.4 (19-24); sO2 93.5 % (94-98); tHb 15.9 g/dl (11.7-17.4)
--- NOTE | 2023-12-09 15:12 | DI ---
EXAM: CHEST, SINGLE VIEW HISTORY: Cough COMPARISON: 11/23/2015 IMPRESSION: Cardiomediastinal countours appear stable. There is no focal pulmonary consolidation. No pleural effusion or pneumothorax. No acute cardiopulmonary process.
[2023-12-09 16:14] LABS: BILIRUBIN,URINE 2+ (NEGATIVE); CLARITY,URINE Slightly (CLEAR); COLOR,URINE Amber (YELLOW); GLUCOSE, URINE (UA) Trace (NEGATIVE); KETONES,URINE Trace (NEGATIVE); LEUKOCYTE ESTERASE ,URINE Negative (NEGATIVE); NITRITE,URINE Negative (NEGATIVE); PH,URINE 5.5 (5-9); PROTEIN,URINE 3+ (NEGATIVE); URINE, BLOOD Trace-intact (NEGATIVE)
[2023-12-09] MEDS: TAMIFLU CAPSULE PO ONE (16:14)
[2023-12-09 16:21] LABS: RENAL EPITHELIAL CELLS,URINE 0-2 (NOT PRESENT); URINE RBC, MICROSCOPIC 0-2 (0-2); URINE WBC, MICROSCOPIC 20-30 (0-2)
[2023-12-09 16:22] LABS: BACTERIA,URINE 1+ (NOT PRESENT); MUCUS,URINE TRACE (NOT PRESENT); OTHER CASTS, URINE 0-2 (NOT PRESENT)
[2023-12-09] MEDS: DUONEB NEB SCH (17:09)
[2023-12-09 17:47] VITALS: BMI 38.2
[2023-12-09] MEDS: LACTATED RINGERS 1,000 ML IV SCH (17:56)
[2023-12-09] MEDS: K-DUR PO ONE (18:14)
[2023-12-09] MEDS: SOLU-MEDROL 40 MG IVP SCH (21:41)
[2023-12-09] MEDS: TAMIFLU CAPSULE PO SCH (21:42)
[2023-12-09] MEDS: TYLENOL PO PRN (21:44)
[2023-12-10 05:29] LABS: BASOPHILS % (AUTO) 0.1 % (0.0-3.0); HEMATOCRIT 42.8 % (37.0-47.0); HEMOGLOBIN 13.9 g/dl (12.0-16.0); IMMATURE GRANULOCYTE # (AUTO) 0.1 (0.0-1.0); IMMATURE GRANULOCYTE % (AUTO) 0.4 % (0.0-5.0); LYMPHOCYTES # (AUTO) 1.4 K/uL (0.60-3.4); MEAN CORPUSCULAR HEMOGLOBIN 28.1 pg (27.0-31.0); MEAN CORPUSCULAR HGB CONC 32.5 (31.8-35.4); MEAN CORPUSCULAR VOLUME 86.6 fl (81.0-99.0); MONOCYTES # (AUTO) 0.6 K/uL (0.4-2.0); MONOCYTES % (AUTO) 4.4 (0-10); NEUTROPHILS # (AUTO) 10.5 K/ul (2.0-6.9); NEUTROPHILS % (AUTO) 84.1 % (42.2-75.2); PLATELET COUNT 168 10^3/uL (140-440); RED BLOOD COUNT 4.94 10^6/ul (4.20-5.40); WHITE BLOOD COUNT 12.44 K/ul (4.6-10.2)
[2023-12-10 05:49] LABS: ALANINE AMINOTRANSFERASE 20.2 U/L (0-35); ALBUMIN 3.7 g/dL (3.5-5.0); ALKALINE PHOSPHATASE 69.5 U/L (53-141); ASPARTATE AMINO TRANSFERASE 41.4 U/L (14-36); BILIRUBIN,TOTAL 0.51 mg/dL (0.2-1.3); CALCIUM 9.16 mg/dL (8.4-10.2); CARBON DIOXIDE 27.6 mmol/L (22-30.0); CHLORIDE 103.9 mmol/L (98-107); CREATININE 0.91 mg/dL (0.60-1.30); POTASSIUM 4.09 mmol/L (3.5-5.1); TOTAL PROTEIN 7.23 g/dL (6.3-8.2)
--- NOTE | 2023-12-10 10:50 | PCM ---
Date of Service Date Seen by Provider: 12/10/23 Time Seen by Provider: 08:50 Admit Day/Time Admission Date: 12/09/23 Admission Time: 16:29 Reason for Admission Chief Complaint: INFLU A; RESP FAILURE, HYPOXIA Hospital Provider Hospital Provider[facility] Primary [facility] Physician Primary Care Physician: AMIE LUNA APRN History of Present Illness History of Present Illness: Patient is a 63 year old female with pmhx of hypertension who presented to the ER with 3 day history of cough, sob, and overall not feeling well. She had recently traveling visiting her kids. She was noted to have a low PO2 and was placed on 2L. She tested positive for Influenza A. She was given tamiflu and steroids. Patient was very wheezy as well. Patient admitted overnight. On my evaluation this morning patient states she is feeling better but gets very SOB with minimal exertion. She is requiring 3L today. She states she has chest pain when she coughs and takes deep breaths. She is having a very productive cough. Denies tobacco use or hx of COPD. Smokes marijuana once weekly. Case Discussed With Case Discussed With: Patient's case was discussed with the ER Physicians, Dr. Pablo. [facility] Medical History Bone fracture left leg/foot/ankle fx. Has rods/pins/plate T14.8XXA - Other injury of unspecified body region, initial encounter (ICD- 10) Surgical History History of tubal ligation Z98.51 - Tubal ligation status (ICD-10) Status post tonsillectomy Z90.89 - Acquired absence of other organs (ICD-10) Ganglion cyst right wrist History of orthopedic surgery left leg/foot/ankle fx. Has rods/pins/plate Z98.890 - Other specified postprocedural states (ICD-10) Family History Mother RA (rheumatoid arthritis) Diabetes FATHER Hypertension Social History Smoking and tobacco status: Never smoker Allergies Allergies Allergy/AdvReac Type Severity Reaction Status Date / Time tramadol Allergy Severe Unknown Verified 12/09/23 13:24 meloxicam [From Mobic] Allergy Mild hair loss Verified 12/09/23 13:24 Current Medications Home Medications diltiazem HCl 180 mg capsule,extended release 24 hr See Rx Instructions .Route .COMPLEX #30 caps 09/24/23 [Rx Confirmed 12/09/23 Last Taken Unknown] Home Acetaminophen (Acetaminophen 325 Mg Tablet) 650 mg PO Q4H PRN PRN Reason: Mild Pain Last Admin: 12/09/23 21:44 Dose: 650 mg Albuterol/Ipratropium (Ipratropium/Albuterol Vial.Neb) 3 ml NEB RTQ6H [facility] Last Admin: 12/10/23 11:25 Dose: 3 ml Diltiazem HCl (Diltiazem Hcl 180 Mg Cap.Er.24h) 180 mg PO DAILY [facility] Last Admin: 12/10/23 12:45 Dose: 180 mg Enoxaparin Sodium (Enoxaparin Sodium 40 Mg/0.4 Ml Syr) 40 mg SUBCUT DAILY [facility] Last Admin: 12/10/23 12:45 Dose: 40 mg Guaifenesin (Guaifenesin 600 Mg Tablet.Er) 600 mg PO Q12HR [facility] Last Admin: 12/10/23 12:45 Dose: 600 mg Lactated Ringer's (Lactated Ringers) 1,000 mls @ 100 mls/hr IV .Q10H [facility] Last Admin: 12/10/23 12:48 Dose: 100 mls/hr Methylprednisolone Sodium Succinate (Methylprednisolone Sod Succ/Pf 40 Mg/Ml Vial) 40 mg IVP Q8HR [facility] Last Admin: 12/10/23 12:45 Dose: 40 mg Ondansetron HCl (Ondansetron Hcl/Pf 4 Mg/2 Ml Sdv) 4 mg IVP Q6H PRN PRN Reason: Nausea / Vomiting Oseltamivir Phosphate (Oseltamivir Phosphate 75 Mg Capsule) 75 mg PO Q12HR [facility] Stop: 12/14/23 22:00 Last Admin: 12/10/23 08:13 Dose: 75 mg Sodium Chloride (0.9% Sodium Chloride 10 Ml Disp.Syrin) 1 syr IVF PRN PRN PRN Reason: To flush IV Last Admin: 12/10/23 06:03 Dose: 1 syr Discontinued Medications Albuterol/Ipratropium (Ipratropium/Albuterol Vial.Neb) 3 ml NEB ONCE STA Stop: 12/09/23 14:24 Last Admin: 12/09/23 14:40 Dose: 3 ml Lactated Ringer's (Lactated Ringers) 1,000 mls @ 1,000 mls/hr IV BOLUS STA Stop: 12/09/23 15:20 Last Infusion: 12/09/23 16:16 Dose: Infused Methylprednisolone Sodium Succinate (Methylprednisolone Sod Succ/Pf 125 Mg/2 Ml Vial) 125 mg IVP ONCE STA Stop: 12/09/23 14:24 Last Admin: 12/09/23 14:52 Dose: 125 mg Ondansetron HCl (Ondansetron Hcl/Pf 4 Mg/2 Ml Sdv) 4 mg IVP ONCE STA Stop: 12/09/23 14:22 Last Admin: 12/09/23 14:51 Dose: 4 mg Oseltamivir Phosphate (Oseltamivir Phosphate 75 Mg Capsule) 75 mg PO ONCE ONE Stop: 12/09/23 15:54 Last Admin: 12/09/23 16:14 Dose: 75 mg Potassium Chloride (Potassium Chloride 20 Meq Tab) 40 meq PO ONCE ONE Stop: 12/09/23 16:35 Last Admin: 12/09/23 18:14 Dose: 40 meq Opioid Naive vs. Tolerant Does Patient Take Opioids?: No Is Patient Opioid Naive?: Yes What is Opioid Naive?: *Opioid Naive implies the patient is not already taking opioids or not chronically receiving opioids on a daily basis. *PRN dosing is not "usually" associated with tolerance. *Patients are at higher risk of over-sedation and aspiration. Is Patient Opioid Tolerant?: No What is Opioid Tolerant?: *Opioid Tolerance implies less than the expected response to an opioid. *Acquired tolerance is defined by the patient taking 60mg of oral morphine daily (or equianalgesic dose of another opioid) for 1 week or more. *Often associated with chronic pain. *May take more than usual dose to achieve desired pain control. Review of Systems Constitutional: Reports Fatigue and Loss of appetite; Denies Fever Head: Reports Normocephalic and Atraumatic Cardiovascular: Reports Chest pain; Denies Chest Pressure, Left arm pain or Edema Respiratory: Reports Cough, Shortness of air and Pain with breathing Gastrointestinal: Denies Nausea, Vomiting, Diarrhea, Abdominal pain or Melena Genitourinary: Denies Dysuria or Frequency Dermatologic: Denies Rashes Neurological: Denies Headache or Weakness Physical examination Most Recent Vital Signs: Most Recent Vital Signs Temperature 97.5 F L 12/10/23 10:00 Temperature Source Tympanic 12/10/23 10:00 Temperature Source Infrared 12/09/23 13:14 Pulse Rate 80 12/10/23 10:00 Respiratory Rate 19 12/10/23 10:00 Blood Pressure 151/85 H 12/10/23 10:00 Blood Pressure Mean 107 12/10/23 10:00 Blood Pressure Left Arm 146/85 12/09/23 17:25 Blood Pressure Location Left Arm 12/10/23 10:00 Blood Pressure Position Sitting 12/10/23 10:00 O2 Sat by Pulse Oximetry 95 12/10/23 10:00 Oxygen Delivery Method Nasal Cannula 12/10/23 10:00 Oxygen Flow Rate 3 12/10/23 10:00 Height 5 ft 6.5 in 12/09/23 17:25 Weight 241 lb 12/09/23 17:25 Telemetry Type Remote Telemetry 12/10/23 07:00 Telemetry Monitoring Continues 12/10/23 07:00 Telemetry Heart Rate 64 12/10/23 07:00 Telemetry SPO2 96 12/10/23 07:00 EKG VA Interval 0.16 12/10/23 07:00 EKG QRS Interval 0.06 12/10/23 07:00 Telemetry Strip Reading SR 12/10/23 07:00 Appearance: Positive No Apparent Distress and Alert and Oriented x3 Skin: Positive [place], Warm and Good Turgor; Negative Rashes HEENT: Positive Normocephalic and Atraumatic Neck: Positive Supple and Midline Trachea Chest/Lungs: Positive Symmetrical With Equal Breath Sounds, Rhonci and Wheezes Heart: Positive RRR GI/: Positive Soft, Nontender and Bowel Sounds Normal Neurological: Positive Alert, Oriented and Muscle Strength 5/5 in Upper and Lower Extremities Bilaterally Psychiatric: Positive Oriented x4, Appropriate Mood and Appropriate Affect Labs This Visit Labs This Visit: Labs This Visit 12/09/23 12/09/23 12/09/23 13:25 14:36 14:36 WBC 15.18 H RBC 5.55 H Hgb 15.6 Hct 47.4 H MCV 85.4 MCH 28.1 MCHC 32.9 RDW Coeff of Trey 14.8 Plt Count 161 Immature Gran % (Auto) 0.3 Neut % (Auto) 77.8 H Lymph % (Auto) 11.8 [place] % (Auto) 10.0 Eos % (Auto) 0.0 Baso % (Auto) 0.1 Neut # (Auto) 11.8 H Lymph # (Auto) 1.8 [place] # (Auto) 1.5 Eos # (Auto) 0.0 Baso # (Auto) 0.0 Immature Gran # (Auto) 0.1 Puncture Site Base Excess O2 Saturation ABG pH ABG pCO2 ABG pO2 ABG HCO3 ABG Total CO2 Nathanael Test Hemoglobin Oxyhemoglobin Carboxyhemoglobin Total Hemoglobin FiO2 % Sodium 133.7 L Potassium 3.46 L Chloride 102.8 Carbon Dioxide 21.5 L Anion Gap 12.86 BUN 19.2 H Creatinine 0.85 Estimated GFR (MDRD) 81.00 BUN/Creatinine Ratio 22.58 Glucose 102.8 Lactic Acid 0.86 Calcium 9.47 Total Bilirubin 0.75 AST 44.7 H ALT 20.7 Alkaline Phosphatase 84.2 Total Protein 8.03 Albumin 4.23 Globulin 3.80 Albumin/Globulin Ratio 1.11 Procalcitonin 0.66 H 0.67 H Urine Color Urine Clarity Urine pH Ur Specific [place] Urine Protein Urine Glucose (UA) Urine Ketones Urine Blood Urine Nitrite Urine Bilirubin Urine Urobilinogen Ur Leukocyte Esterase Urine Microscopic RBC Urine Microscopic WBC Ur Squamous Epith Cells Ur Renal Epithelial Cell Urine Bacteria Hyaline Casts Fine Granular Casts Other Casts Urine Mucus Influ A Molecular Assay Positive by naat H Influ B Molecular Assay Negative by naat RSV Antigen Negative by naat SARS CoV-2 RNA Rapid LUZMA Negative 12/09/23 12/09/23 12/10/23 15:00 16:00 05:22 WBC 12.44 H RBC 4.94 Hgb 13.9 Hct 42.8 MCV 86.6 MCH 28.1 MCHC 32.5 RDW Coeff of Trey 15.0 H Plt Count 168 Immature Gran % (Auto) 0.4 Neut % (Auto) 84.1 H Lymph % (Auto) 11.0 [place] % (Auto) 4.4 Eos % (Auto) 0.0 Baso % (Auto) 0.1 Neut # (Auto) 10.5 H Lymph # (Auto) 1.4 [place] # (Auto) 0.6 Eos # (Auto) 0.0 Baso # (Auto) 0.0 Immature Gran # (Auto) 0.1 Puncture Site Rrad Base Excess -1.8 O2 Saturation 93.5 L ABG pH 7.44 ABG pCO2 33.0 L ABG pO2 66.0 L ABG HCO3 22.4 ABG Total CO2 23.4 Nathanael Test Pos Hemoglobin 1.3 Oxyhemoglobin 91.7 L Carboxyhemoglobin 1.8 H Total Hemoglobin 15.9 FiO2 % 21.0 Sodium 136.0 Potassium 4.09 Chloride 103.9 Carbon Dioxide 27.6 Anion Gap 8.59 BUN 27.0 H Creatinine 0.91 Estimated GFR (MDRD) 75.00 BUN/Creatinine Ratio 29.67 Glucose 134.0 H Lactic Acid Calcium 9.16 Total Bilirubin 0.51 AST 41.4 H ALT 20.2 Alkaline Phosphatase 69.5 Total Protein 7.23 Albumin 3.70 Globulin 3.53 Albumin/Globulin Ratio 1.04 Procalcitonin 0.50 H Urine Color [place] Urine Clarity Slightly Urine pH 5.5 Ur Specific [place] >=1.030 Urine Protein 3+ H Urine Glucose (UA) Trace H Urine Ketones Trace H Urine Blood Trace-intact H Urine Nitrite Negative Urine Bilirubin 2+ H Urine Urobilinogen 1.0 H Ur Leukocyte Esterase Negative Urine Microscopic RBC 0-2 Urine Microscopic WBC 20-30 Ur Squamous Epith Cells 2-5 Ur Renal Epithelial Cell 0-2 Urine Bacteria 1+ Hyaline Casts 10-20 Fine Granular Casts 2-5 Other Casts 0-2 Urine Mucus Trace Influ A Molecular Assay Influ B Molecular Assay RSV Antigen SARS CoV-2 RNA Rapid LUZMA Microbiology This Visit 12/09/23 16:00 Urine,Random Urine Culture - Preliminary Imaging Imaging: EXAM: CHEST, SINGLE VIEW HISTORY: Cough COMPARISON: 11/23/2015 IMPRESSION: Cardiomediastinal countours appear stable. There is no focal pulmonary consolidation. No pleural effusion or pneumothorax. No acute cardiopulmonary process. Review Statement Review Statement: I have independently reviewed and interpreted the labs/EKGs/imaging that were ordered by the ER provider. I have reviewed all outside records that are available currently in our EMR including imaging/notes/labs from previous visits. Plan Plan: 1. Acute hypoxic respiratory failure in setting of influenza A - Wean O2 when able, tamiflu, duonebs, solumedrol. 2. Influenza A - Plan as above 3. Hypertension - Cont home meds DVT Prophylaxis: Lovenox Time Spent: Greater than 80 minutes spent with patient, 50% of the time spent with this patient was devoted to counseling and coordination of care. [facility] Plannin minutes spent discussing advance care planning. FULL CODE Smoking Cessation: 3 minutes spent discussing smoking cessation. Admit to: Obs Discussed Plan of Care with Dr. Rosario Agarwal. Medications Medication Orders: Medications Ordered Category Date Time Status 0.9 % Sodium Chloride [Saline Flush] Meds 12/09/23 14:21 Active 1 syr IVF PRN PRN Acetaminophen [Tylenol] Meds 12/09/23 16:34 Active 650 mg PO Q4H PRN Ipratropium/Albuterol Neb [Duoneb] Meds 12/09/23 18:00 Active 3 ml NEB RTQ6H Methylprednisolone Sod Succ/Pf [Solu-Medrol 40 mg] Meds 12/09/23 21:00 Active 40 mg IVP Q8HR Ondansetron HCl/Pf [Zofran 4 mg/2 ml] Meds 12/09/23 16:34 Active 4 mg IVP Q6H PRN Oseltamivir Phosphate Capsule [Tamiflu Capsule] Meds 12/09/23 21:00 Active 75 mg PO Q12HR Ringers Lactated Solution [Lactated Ringers] 1,000 ml Meds 12/09/23 17:00 Active IV 100 mls/hr
[2023-12-10] MEDS ORDERED: CARDIZEM CD PO SCH (11:00)
[2023-12-10] MEDS: MUCINEX PO SCH (12:45)
[2023-12-10] MEDS: LOVENOX SUBCUT SCH (12:45)
[2023-12-10] MEDS: CARDIZEM CD PO SCH (12:45)
[2023-12-11 05:14] LABS: BASOPHILS % (AUTO) 0.1 % (0.0-3.0); EOSINOPHILS % (AUTO) 0.1 % (0.0-7.0); HEMATOCRIT 44.4 % (37.0-47.0); HEMOGLOBIN 14.3 g/dl (12.0-16.0); IMMATURE GRANULOCYTE # (AUTO) 0.1 (0.0-1.0); IMMATURE GRANULOCYTE % (AUTO) 0.7 % (0.0-5.0); LYMPHOCYTES # (AUTO) 1.9 K/uL (0.60-3.4); LYMPHOCYTES % (AUTO) 12.7 (10.0-50.0); MEAN CORPUSCULAR HGB CONC 32.2 (31.8-35.4); MEAN CORPUSCULAR VOLUME 87.1 fl (81.0-99.0); MONOCYTES # (AUTO) 0.8 K/uL (0.4-2.0); MONOCYTES % (AUTO) 5.6 (0-10); NEUTROPHILS % (AUTO) 80.8 % (42.2-75.2); PLATELET COUNT 182 10^3/uL (140-440); RDW COEFFICIENT OF VARIATION 14.9 % (11.6-14.8)
[2023-12-11 05:30] LABS: ALANINE AMINOTRANSFERASE 24.2 U/L (0-35); ALBUMIN 3.84 g/dL (3.5-5.0); ALKALINE PHOSPHATASE 72.8 U/L (53-141); ASPARTATE AMINO TRANSFERASE 36.7 U/L (14-36); BILIRUBIN,TOTAL 0.49 mg/dL (0.2-1.3); CALCIUM 9.2 mg/dL (8.4-10.2); CARBON DIOXIDE 25.5 mmol/L (22-30.0); CHLORIDE 102.9 mmol/L (98-107); CREATININE 0.72 mg/dL (0.60-1.30); GLUCOSE 144.4 mg/dL (74-106); POTASSIUM 3.82 mmol/L (3.5-5.1); SODIUM 137.3 mmol/L (134.5-145); TOTAL PROTEIN 7.53 g/dL (6.3-8.2)
[2023-12-11] MEDS: LIDODERM 5 % PATCH TP SCH (09:09)
--- NOTE | 2023-12-11 09:15 | PCM.PROG ---
Date/Time Seen Date Seen by Provider: 12/11/23 Time Seen by Provider: 08:30 Provider Provider: [facility] HODGES [facility]-C, [facility] Chief Complaint Chief Complaint: INFLU A; RESP FAILURE, HYPOXIA Subjective Subjective: Patient failed weaning trial of O2. Dropped to 88-89% on RA. RR increased. Have consistently been in the 20s, especially with any exertion. She overall is feeling better however. Eating and drinking better. Objective Appearance: Positive No Apparent Distress and Alert and Oriented x3 Chest/Lungs: Positive Symmetrical With Equal Breath Sounds, Rhonci and Wheezes Heart: Positive RRR GI/: Positive Soft, Nontender, Bowel Sounds Normal and No Distention Neurological: Positive Cranial Nerves Intact, Alert, Oriented and Other (+generalized weakness ) Vital Signs Vital Signs: Vital Signs: Last 24 Hours 12/10/23 10:00 12/10/23 10:00 12/10/23 10:00 Temperature 97.5 F L Temperature Source Tympanic Pulse Rate 80 Respiratory Rate 19 Blood Pressure 151/85 H Blood Pressure Mean 107 Blood Pressure Location Left Arm Blood Pressure Position Sitting O2 Sat by Pulse Oximetry 95 97 Oxygen Delivery Method Nasal Cannula Nasal Cannula Nasal Cannula Oxygen Flow Rate 3 3 Height Weight Telemetry Type Telemetry Monitoring Telemetry Heart Rate Telemetry SPO2 EKG TX Interval EKG QRS Interval Telemetry Strip Reading 12/10/23 10:55 12/10/23 11:57 12/10/23 12:57 Temperature Temperature Source Pulse Rate Respiratory Rate Blood Pressure Blood Pressure Mean Blood Pressure Location Blood Pressure Position O2 Sat by Pulse Oximetry Oxygen Delivery Method Nasal Cannula Nasal Cannula Nasal Cannula Oxygen Flow Rate Height Weight Telemetry Type Telemetry Monitoring Telemetry Heart Rate Telemetry SPO2 EKG TX Interval EKG QRS Interval Telemetry Strip Reading 12/10/23 13:00 12/10/23 14:00 12/10/23 14:00 Temperature Temperature Source Tympanic Pulse Rate 76 Respiratory Rate 22 H Blood Pressure 133/80 Blood Pressure Mean 97 Blood Pressure Location Left Arm Blood Pressure Position Sitting O2 Sat by Pulse Oximetry 95 Oxygen Delivery Method Nasal Cannula Nasal Cannula Oxygen Flow Rate 3 Height Weight Telemetry Type Remote Telemetry Telemetry Monitoring Continues Telemetry Heart Rate 68 Telemetry SPO2 94 EKG TX Interval 0.13 EKG QRS Interval 0.09 Telemetry Strip Reading SR 12/10/23 14:00 12/10/23 15:00 12/10/23 16:00 Temperature Temperature Source Pulse Rate Respiratory Rate Blood Pressure Blood Pressure Mean Blood Pressure Location Blood Pressure Position O2 Sat by Pulse Oximetry 96 Oxygen Delivery Method Nasal Cannula Nasal Cannula Nasal Cannula Oxygen Flow Rate 3 Height Weight Telemetry Type Telemetry Monitoring Telemetry Heart Rate Telemetry SPO2 EKG TX Interval EKG QRS Interval Telemetry Strip Reading 12/10/23 17:00 12/10/23 17:48 12/10/23 17:48 Temperature 97.6 F Temperature Source Tympanic Pulse Rate 84 Respiratory Rate 19 Blood Pressure 150/79 H Blood Pressure Mean 102 Blood Pressure Location Left Arm Blood Pressure Position Sitting O2 Sat by Pulse Oximetry 90 L Oxygen Delivery Method Nasal Cannula Nasal Cannula Nasal Cannula Oxygen Flow Rate 3 Height Weight Telemetry Type Telemetry Monitoring Telemetry Heart Rate Telemetry SPO2 EKG TX Interval EKG QRS Interval Telemetry Strip Reading 12/10/23 19:00 12/10/23 19:00 12/10/23 19:55 Temperature Temperature Source Pulse Rate Respiratory Rate Blood Pressure Blood Pressure Mean Blood Pressure Location Blood Pressure Position O2 Sat by Pulse Oximetry 97 Oxygen Delivery Method Nasal Cannula Nasal Cannula Oxygen Flow Rate 3 Height Weight Telemetry Type Bedside Monitor Telemetry Monitoring Continues Telemetry Heart Rate 78 Telemetry SPO2 95 EKG TX Interval 0.15 EKG QRS Interval 0.06 Telemetry Strip Reading SR 12/10/23 20:00 12/10/23 20:00 12/10/23 21:00 Temperature Temperature Source Pulse Rate Respiratory Rate Blood Pressure Blood Pressure Mean Blood Pressure Location Blood Pressure Position O2 Sat by Pulse Oximetry Oxygen Delivery Method Nasal Cannula Nasal Cannula Nasal Cannula Oxygen Flow Rate 3 Height Weight Telemetry Type Telemetry Monitoring Telemetry Heart Rate Telemetry SPO2 EKG TX Interval EKG QRS Interval Telemetry Strip Reading 12/10/23 21:06 12/10/23 22:00 12/10/23 23:00 Temperature 97.9 F Temperature Source Temporal Artery Scan Pulse Rate 72 Respiratory Rate 30 H Blood Pressure 142/74 H Blood Pressure Mean 96 Blood Pressure Location Left Arm Blood Pressure Position Supine O2 Sat by Pulse Oximetry 93 L Oxygen Delivery Method Nasal Cannula Nasal Cannula Nasal Cannula Oxygen Flow Rate 3 Height Weight Telemetry Type Telemetry Monitoring Telemetry Heart Rate Telemetry SPO2 EKG TX Interval EKG QRS Interval Telemetry Strip Reading 12/11/23 00:00 12/11/23 01:00 12/11/23 01:00 Temperature Temperature Source Pulse Rate Respiratory Rate Blood Pressure Blood Pressure Mean Blood Pressure Location Blood Pressure Position O2 Sat by Pulse Oximetry Oxygen Delivery Method Nasal Cannula Nasal Cannula Oxygen Flow Rate Height Weight Telemetry Type Remote Telemetry Telemetry Monitoring Continues Telemetry Heart Rate 59 L Telemetry SPO2 95 EKG TX Interval 0.11 L EKG QRS Interval 0.07 Telemetry Strip Reading sinus sherif 12/11/23 02:00 12/11/23 02:00 12/11/23 03:00 Temperature 98.2 F Temperature Source Temporal Artery Scan Pulse Rate 55 L Respiratory Rate 23 H Blood Pressure 146/75 H Blood Pressure Mean 98 Blood Pressure Location Left Arm Blood Pressure Position Supine O2 Sat by Pulse Oximetry 97 Oxygen Delivery Method Nasal Cannula Nasal Cannula Nasal Cannula Oxygen Flow Rate 3 Height Weight Telemetry Type Telemetry Monitoring Telemetry Heart Rate Telemetry SPO2 EKG TX Interval EKG QRS Interval Telemetry Strip Reading 12/11/23 04:00 12/11/23 04:47 12/11/23 05:00 Temperature Temperature Source Pulse Rate Respiratory Rate Blood Pressure Blood Pressure Mean Blood Pressure Location Blood Pressure Position O2 Sat by Pulse Oximetry 96 Oxygen Delivery Method Nasal Cannula Nasal Cannula Nasal Cannula Oxygen Flow Rate 3 Height Weight Telemetry Type Telemetry Monitoring Telemetry Heart Rate Telemetry SPO2 EKG TX Interval EKG QRS Interval Telemetry Strip Reading 12/11/23 05:51 12/11/23 05:51 12/11/23 07:00 Temperature 97.0 F L Temperature Source Temporal Artery Scan Pulse Rate 73 Respiratory Rate 20 Blood Pressure 149/77 H Blood Pressure Mean 101 Blood Pressure Location Left Arm Blood Pressure Position Supine O2 Sat by Pulse Oximetry 92 L Oxygen Delivery Method Nasal Cannula Nasal Cannula Oxygen Flow Rate 3 Height Weight Telemetry Type Bedside Monitor Telemetry Monitoring Continues Telemetry Heart Rate 72 Telemetry SPO2 95 EKG TX Interval 0.12 EKG QRS Interval 0.08 Telemetry Strip Reading NSR 12/11/23 07:00 12/11/23 08:00 12/11/23 08:00 Temperature Temperature Source Pulse Rate Respiratory Rate Blood Pressure Blood Pressure Mean Blood Pressure Location Blood Pressure Position O2 Sat by Pulse Oximetry Oxygen Delivery Method Nasal Cannula Nasal Cannula Nasal Cannula Oxygen Flow Rate 3 Height Weight Telemetry Type Telemetry Monitoring Telemetry Heart Rate Telemetry SPO2 EKG TX Interval EKG QRS Interval Telemetry Strip Reading 12/11/23 08:30 12/11/23 09:00 12/11/23 09:00 Temperature Temperature Source Pulse Rate 80 Respiratory Rate 30 H Blood Pressure 143/76 H Blood Pressure Mean 98 Blood Pressure Location Left Arm Blood Pressure Position Sitting O2 Sat by Pulse Oximetry 89 L Oxygen Delivery Method Room Air Room Air Room Air Oxygen Flow Rate Height Weight Telemetry Type Telemetry Monitoring Telemetry Heart Rate Telemetry SPO2 EKG TX Interval EKG QRS Interval Telemetry Strip Reading 12/11/23 09:04 Temperature Temperature Source Pulse Rate Respiratory Rate Blood Pressure Blood Pressure Mean Blood Pressure Location Blood Pressure Position O2 Sat by Pulse Oximetry Oxygen Delivery Method Oxygen Flow Rate Height 5 ft 6.5 in Weight 241 lb Telemetry Type Telemetry Monitoring Telemetry Heart Rate Telemetry SPO2 EKG TX Interval EKG QRS Interval Telemetry Strip Reading Lab Results Lab Results: Lab Results: Last 24 Hours 12/11/23 05:08 WBC 14.90 H RBC 5.10 Hgb 14.3 Hct 44.4 MCV 87.1 MCH 28.0 MCHC 32.2 RDW Coeff of Trey 14.9 H Plt Count 182 Immature Gran % (Auto) 0.7 Neut % (Auto) 80.8 H Lymph % (Auto) 12.7 [place] % (Auto) 5.6 Eos % (Auto) 0.1 Baso % (Auto) 0.1 Neut # (Auto) 12.0 H Lymph # (Auto) 1.9 [place] # (Auto) 0.8 Eos # (Auto) 0.0 Baso # (Auto) 0.0 Immature Gran # (Auto) 0.1 Sodium 137.3 Potassium 3.82 Chloride 102.9 Carbon Dioxide 25.5 Anion Gap 12.72 BUN 20.0 H Creatinine 0.72 Estimated GFR (MDRD) 99.00 BUN/Creatinine Ratio 27.77 Glucose 144.4 H Calcium 9.20 Total Bilirubin 0.49 AST 36.7 H ALT 24.2 Alkaline Phosphatase 72.8 Total Protein 7.53 Albumin 3.84 Globulin 3.69 Albumin/Globulin Ratio 1.04 Procalcitonin 0.20 H Additional Comments Additional Comments: I have independently reviewed and interpreted the labs/EKGs/imaging ordered during this hospital stay. I have reviewed outside records that are available in our EMR that pertain to medical stay including imaging/notes/labs from previous visits. Active Medications Active Medications: Medications Generic Name Dose Route Start Last Admin Trade Name Freq PRN Reason Stop Dose Admin Acetaminophen 650 mg 12/09/23 16:34 12/09/23 21:44 Acetaminophen 325 Mg Tablet PO 650 mg Q4H PRN Administration Mild Pain Albuterol/Ipratropium 3 ml 12/09/23 18:00 12/11/23 04:48 Ipratropium/Albuterol Vial.Neb NEB 3 ml RTQ6H VALARIE Administration Diltiazem HCl 180 mg 12/10/23 12:30 12/10/23 12:45 Diltiazem Hcl 180 Mg Cap.Er.24h PO 180 mg DAILY VALARIE Administration Enoxaparin Sodium 40 mg 12/10/23 11:00 12/10/23 12:45 Enoxaparin Sodium 40 Mg/0.4 Ml Syr SUBCUT 40 mg DAILY VALARIE Administration Guaifenesin 600 mg 12/10/23 11:00 12/10/23 20:29 Guaifenesin 600 Mg Tablet.Er PO 600 mg Q12HR VALARIE Administration Lidocaine 1 patch 12/11/23 09:00 Lidocaine 5% Patch TP DAILY VALARIE Methylprednisolone Sodium Succinate 40 mg 12/09/23 21:00 12/11/23 05:10 Methylprednisolone Sod Succ/Pf 40 Mg/Ml Vial IVP 40 mg Q8HR VALARIE Administration Ondansetron HCl 4 mg 12/09/23 16:34 Ondansetron Hcl/Pf 4 Mg/2 Ml Sdv IVP Q6H PRN Nausea / Vomiting Oseltamivir Phosphate 75 mg 12/09/23 21:00 12/10/23 20:29 Oseltamivir Phosphate 75 Mg Capsule PO 12/14/23 22:00 75 mg Q12HR VALARIE Administration Sodium Chloride 1 syr 12/09/23 14:21 12/10/23 06:03 0.9% Sodium Chloride 10 Ml Disp.Syrin IVF 1 syr PRN PRN Administration To flush IV Plan Plan: 1. Acute hypoxic respiratory failure in setting of influenza A - Wean O2 when able, cont tamiflu, duonebs, solumedrol. Add mucinex. 2. Influenza A - Plan as above 3. Hypertension - Cont home meds DVT Prophylaxis: Leo Made inpatient today, has continued to require O2, sob with exertion, not at baseline. Review Statement Review Statement: I have personally discussed and reviewed the patient's visit/currently labs/imaging/decision making with Dr. Agarwal, my supervising attending. Greater that 50 minutes spent with patient, 50% of the time spent with this patient was devoted to counseling and coordination of care.
[2023-12-11] MEDS: ZOFRAN 4 MG/2 ML IVP PRN (12:38)
[2023-12-12 09:06] LABS: BASOPHILS % (AUTO) 0.1 % (0.0-3.0); EOSINOPHILS % (AUTO) 0.1 % (0.0-7.0); HEMATOCRIT 41.4 % (37.0-47.0); HEMOGLOBIN 13.4 g/dl (12.0-16.0); IMMATURE GRANULOCYTE # (AUTO) 0.1 (0.0-1.0); IMMATURE GRANULOCYTE % (AUTO) 0.9 % (0.0-5.0); LYMPHOCYTES # (AUTO) 1.5 K/uL (0.60-3.4); LYMPHOCYTES % (AUTO) 11.6 (10.0-50.0); MEAN CORPUSCULAR HEMOGLOBIN 28.6 pg (27.0-31.0); MEAN CORPUSCULAR HGB CONC 32.4 (31.8-35.4); MEAN CORPUSCULAR VOLUME 88.3 fl (81.0-99.0); MONOCYTES # (AUTO) 0.6 K/uL (0.4-2.0); MONOCYTES % (AUTO) 4.9 (0-10); NEUTROPHILS # (AUTO) 10.7 K/ul (2.0-6.9); NEUTROPHILS % (AUTO) 82.4 % (42.2-75.2); PLATELET COUNT 180 10^3/uL (140-440); RDW COEFFICIENT OF VARIATION 14.7 % (11.6-14.8); RED BLOOD COUNT 4.69 10^6/ul (4.20-5.40); WHITE BLOOD COUNT 12.95 K/ul (4.6-10.2)
[2023-12-12 09:20] LABS: ALBUMIN 3.5 g/dL (3.5-5.0); BILIRUBIN,TOTAL 0.3 mg/dL (0.2-1.3); CREATININE 0.6 mg/dL (0.60-1.30); TOTAL PROTEIN 7.2 g/dL (6.3-8.2)
--- NOTE | 2023-12-12 09:28 | PCM.PROG ---
Date/Time Seen Date Seen by Provider: 12/12/23 Time Seen by Provider: 08:20 Provider [facility] Chief Complaint Chief Complaint: INFLU A; RESP FAILURE, HYPOXIA Subjective Subjective: Patient states she's still feeling very sob with any exertion. Still requiring O2. Having bandlike pain when she coughs. Having a productive cough. Objective Appearance: Positive No Apparent Distress and Alert and Oriented x3 Chest/Lungs: Positive Symmetrical With Equal Breath Sounds, Rhonci (improved today) and Wheezes (improved today) Heart: Positive RRR GI/: Positive Soft, Nontender, Bowel Sounds Normal and No Distention Neurological: Positive Cranial Nerves Intact, Alert, Oriented and Other (+generalized weakness ) Vital Signs Vital Signs: Vital Signs: Last 24 Hours 12/11/23 12:03 12/11/23 12:33 12/11/23 13:00 Temperature Temperature Source Pulse Rate 65 Pulse Rate [Apical] Respiratory Rate 20 Blood Pressure 144/81 H Blood Pressure Mean 102 Blood Pressure Location Left Arm Blood Pressure Position Sitting O2 Sat by Pulse Oximetry 96 Oxygen Delivery Method Nasal Cannula Nasal Cannula Oxygen Flow Rate 2 2 Fraction of Inspired Oxygen (FIO2) Telemetry Type Bedside Monitor Telemetry Monitoring Continues Telemetry Heart Rate 76 Telemetry SPO2 95 EKG VA Interval 0.12 EKG QRS Interval 0.07 Telemetry Strip Reading NSR 12/11/23 14:00 12/11/23 14:13 12/11/23 19:00 Temperature 97.8 F Temperature Source Temporal Artery Scan Pulse Rate 67 Pulse Rate [Apical] Respiratory Rate 22 H Blood Pressure 137/78 Blood Pressure Mean 97 Blood Pressure Location Left Arm Blood Pressure Position O2 Sat by Pulse Oximetry 96 93 L Oxygen Delivery Method Nasal Cannula Nasal Cannula Oxygen Flow Rate 2 2 Fraction of Inspired Oxygen (FIO2) Telemetry Type Bedside Monitor Telemetry Monitoring Continues Telemetry Heart Rate 73 Telemetry SPO2 92 L EKG VA Interval 0.11 L EKG QRS Interval 0.03 L Telemetry Strip Reading SR 12/11/23 19:54 12/11/23 20:00 12/11/23 21:14 Temperature 97.9 F Temperature Source Temporal Artery Scan Pulse Rate 76 Pulse Rate [Apical] Respiratory Rate 13 Blood Pressure 140/76 Blood Pressure Mean 97 Blood Pressure Location Left Arm Blood Pressure Position Supine O2 Sat by Pulse Oximetry 95 95 Oxygen Delivery Method Nasal Cannula Nasal Cannula Nasal Cannula Oxygen Flow Rate 2 2 2 Fraction of Inspired Oxygen (FIO2) Telemetry Type Telemetry Monitoring Telemetry Heart Rate Telemetry SPO2 EKG VA Interval EKG QRS Interval Telemetry Strip Reading 12/12/23 01:00 12/12/23 05:08 12/12/23 05:09 Temperature 97.0 F L Temperature Source Temporal Artery Scan Pulse Rate 62 Pulse Rate [Apical] Respiratory Rate 16 Blood Pressure 159/88 H Blood Pressure Mean 111 Blood Pressure Location Left Arm Blood Pressure Position Sitting O2 Sat by Pulse Oximetry 97 96 Oxygen Delivery Method Nasal Cannula Nasal Cannula Oxygen Flow Rate 2 2 Fraction of Inspired Oxygen (FIO2) Telemetry Type Bedside Monitor Telemetry Monitoring Continues Telemetry Heart Rate 55 L Telemetry SPO2 98 EKG VA Interval 0.12 EKG QRS Interval 0.06 Telemetry Strip Reading SB 12/12/23 07:00 12/12/23 08:00 Temperature Temperature Source Pulse Rate Pulse Rate [Apical] 59 L Respiratory Rate 16 Blood Pressure Blood Pressure Mean Blood Pressure Location Blood Pressure Position O2 Sat by Pulse Oximetry Oxygen Delivery Method Nasal Cannula Oxygen Flow Rate Fraction of Inspired Oxygen (FIO2) 1 Telemetry Type Bedside Monitor Telemetry Monitoring Continues Telemetry Heart Rate 59 L Telemetry SPO2 98 EKG VA Interval 0.11 L EKG QRS Interval 0.08 Telemetry Strip Reading bradycardia Lab Results Lab Results: Lab Results: Last 24 Hours 12/12/23 08:36 WBC 12.95 H RBC 4.69 Hgb 13.4 Hct 41.4 MCV 88.3 MCH 28.6 MCHC 32.4 RDW Coeff of Trey 14.7 Plt Count 180 Immature Gran % (Auto) 0.9 Neut % (Auto) 82.4 H Lymph % (Auto) 11.6 [place] % (Auto) 4.9 Eos % (Auto) 0.1 Baso % (Auto) 0.1 Neut # (Auto) 10.7 H Lymph # (Auto) 1.5 [place] # (Auto) 0.6 Eos # (Auto) 0.0 Baso # (Auto) 0.0 Immature Gran # (Auto) 0.1 Additional Comments Additional Comments: I have independently reviewed and interpreted the labs/EKGs/imaging ordered during this hospital stay. I have reviewed outside records that are available in our EMR that pertain to medical stay including imaging/notes/labs from previous visits. Active Medications Active Medications: Medications Generic Name Dose Route Start Last Admin Trade Name Freq PRN Reason Stop Dose Admin Acetaminophen 650 mg 12/09/23 16:34 12/12/23 08:24 Acetaminophen 325 Mg Tablet PO 650 mg Q4H PRN Administration Mild Pain Albuterol/Ipratropium 3 ml 12/09/23 18:00 12/12/23 05:03 Ipratropium/Albuterol Vial.Neb NEB 3 ml RTQ6H VALARIE Administration Diltiazem HCl 180 mg 12/10/23 12:30 12/12/23 08:25 Diltiazem Hcl 180 Mg Cap.Er.24h PO 180 mg DAILY VALARIE Administration Enoxaparin Sodium 40 mg 12/10/23 11:00 12/12/23 08:30 Enoxaparin Sodium 40 Mg/0.4 Ml Syr SUBCUT 40 mg DAILY VALARIE Administration Guaifenesin 600 mg 12/10/23 11:00 12/12/23 08:24 Guaifenesin 600 Mg Tablet.Er PO 600 mg Q12HR VALARIE Administration Lidocaine 1 patch 12/11/23 09:00 12/12/23 08:26 Lidocaine 5% Patch TP 1 patch DAILY VALARIE Administration Methylprednisolone Sodium Succinate 40 mg 12/09/23 21:00 12/12/23 04:49 Methylprednisolone Sod Succ/Pf 40 Mg/Ml Vial IVP 40 mg Q8HR VALARIE Administration Ondansetron HCl 4 mg 12/09/23 16:34 12/11/23 12:38 Ondansetron Hcl/Pf 4 Mg/2 Ml Sdv IVP 4 mg Q6H PRN Administration Nausea / Vomiting Oseltamivir Phosphate 75 mg 12/09/23 21:00 12/12/23 08:24 Oseltamivir Phosphate 75 Mg Capsule PO 12/14/23 22:00 75 mg Q12HR VALARIE Administration Sodium Chloride 1 syr 12/11/23 21:00 12/12/23 04:48 0.9% Sodium Chloride 10 Ml Disp.Syrin IVF 1 syr Q8H VALARIE Administration Plan Plan: 1. Acute hypoxic respiratory failure in setting of influenza A - Improving. Wean O2 when able, cont tamiflu, duonebs, solumedrol, mucinex. 2. Influenza A - Plan as above. Isolation precautions. 3. Hypertension - Cont home meds DVT Prophylaxis: Lovenox Dispo: Has continued to require O2, sob with exertion, not at baseline. Possible DC tomorrow. Review Statement Review Statement: I have personally discussed and reviewed the patient's visit/currently labs/imaging/decision making with Dr. Agarwal, my supervising attending. Greater that 50 minutes spent with patient, 50% of the time spent with this patient was devoted to counseling and coordination of care.
[2023-12-12 14:38] LABS: ALANINE AMINOTRANSFERASE 27.2 U/L (0-35)
--- NOTE | 2023-12-12 16:51 | CT ---
EXAM: CTA CHEST FOR PE HISTORY: Hypoxia COMPARISON: None. TECHNIQUE: CTA of the chest was performed from the lung apices to the upper abdomen after Omnipaqu e IV contrast was administered using PE protocol. 3-D imaging was also provided. FINDINGS: No large central PE. However, limited evaluation of the segmental and subsegmental pulmonary arterie s secondary to respiratory motion.. No CT findings of acute right ventricular strain or pulmonary infarct. Limited evaluation for pulmonary nodule secondary to respiratory motion. However, there are scattere d ground-glass and nodular densities, some in the tree in bud distribution. No dense consolidation. No pleural effusion. No pneumothorax. Prominent mediastinal lymph nodes. Degenerative changes at multiple levels of the spine including pronounced bridging anterior osteophyt es. This can be seen with diffuse idiopathic skeletal hyperostosis as well as other etiologies. IMPRESSION: Limited study. Suboptimal evaluation of the segmental and subsegmental pulmonary arteries. However, no central PE or findings of acute right ventricular strain. Scattered ground-glass and nodular densities, some in the tree in bud distribution. The appearance i s nonspecific but can be seen with infectious and inflammatory etiologies. Clinical follow-up with f ollow up imaging to ensure resolution. Prominent mediastinal lymph nodes, possibly reactive. Attention at follow-up. Please see above description and additional findings. All CT scans are performed using dose optimization techniques as appropriate to the performed exam an d include at least one of the following: Automated exposure control, adjustment of the mA and/or kV according t o size, and the use of iterative reconstruction technique.
[2023-12-13 05:36] LABS: HEMATOCRIT 41.3 % (37.0-47.0); HEMOGLOBIN 13.4 g/dl (12.0-16.0); MEAN CORPUSCULAR HEMOGLOBIN 28.5 pg (27.0-31.0); MEAN CORPUSCULAR HGB CONC 32.4 (31.8-35.4); MEAN CORPUSCULAR VOLUME 87.9 fl (81.0-99.0); PLATELET COUNT 194 10^3/uL (140-440); RDW COEFFICIENT OF VARIATION 14.7 % (11.6-14.8); WHITE BLOOD COUNT 14.24 K/ul (4.6-10.2)
[2023-12-13 05:45] LABS: ALANINE AMINOTRANSFERASE 25.4 U/L (0-35); ALBUMIN 3.31 g/dL (3.5-5.0); ASPARTATE AMINO TRANSFERASE 25.2 U/L (14-36); BILIRUBIN,TOTAL 0.35 mg/dL (0.2-1.3); BLOOD UREA NITROGEN 13.6 mg/dL (7-17); CALCIUM 8.89 mg/dL (8.4-10.2); CARBON DIOXIDE 31.8 mmol/L (22-30.0); CHLORIDE 103.2 mmol/L (98-107); CREATININE 0.67 mg/dL (0.60-1.30); GLUCOSE 135.4 mg/dL (74-106); POTASSIUM 4.45 mmol/L (3.5-5.1); TOTAL PROTEIN 6.59 g/dL (6.3-8.2)
[2023-12-13 05:49] LABS: ANISOCYTOSIS NOT PRESENT (NOT PRESENT)
--- NOTE | 2023-12-13 09:12 | PCM.PROG ---
Date/Time Seen Date Seen by Provider: 12/13/23 Time Seen by Provider: 08:30 Provider [facility] Chief Complaint Chief Complaint: INFLU A; RESP FAILURE, HYPOXIA Subjective Subjective: Patient complains of pain when she coughs in her back, upper abd, and chest. Worse with movement. Still requiring 2-4L. Still very SOB with exertion. Requests to stay another day due to her SOB. Objective Appearance: Positive No Apparent Distress and Alert and Oriented x3 Chest/Lungs: Positive Symmetrical With Equal Breath Sounds, Rhonci (improved today) and Wheezes (improved today) Heart: Positive RRR GI/: Positive Soft, Nontender, Bowel Sounds Normal and No Distention Neurological: Positive Cranial Nerves Intact, Alert, Oriented and Other (+generalized weakness ) Vital Signs Vital Signs: Vital Signs: Last 24 Hours 12/12/23 10:00 12/12/23 12:55 12/12/23 13:00 Temperature Temperature Source Pulse Rate Respiratory Rate Blood Pressure Blood Pressure Mean Blood Pressure Location Blood Pressure Position O2 Sat by Pulse Oximetry 98 98 Oxygen Delivery Method Nasal Cannula Nasal Cannula Oxygen Flow Rate 4 4 Telemetry Type Bedside Monitor Telemetry Monitoring Continues Telemetry Heart Rate 79 Telemetry SPO2 95 EKG [place] Interval 0.10 L EKG QRS Interval 0.08 Telemetry Strip Reading NSR 12/12/23 14:00 12/12/23 14:00 12/12/23 19:00 Temperature 97.3 F L Temperature Source Temporal Artery Scan Pulse Rate 72 Respiratory Rate 20 Blood Pressure 154/67 H Blood Pressure Mean 96 Blood Pressure Location Left Arm Blood Pressure Position Sitting O2 Sat by Pulse Oximetry 97 Oxygen Delivery Method Nasal Cannula Nasal Cannula Oxygen Flow Rate 4 4 Telemetry Type Bedside Monitor Telemetry Monitoring Continues Telemetry Heart Rate 63 Telemetry SPO2 98 EKG [place] Interval 0.13 EKG QRS Interval 0.09 Telemetry Strip Reading SR 12/12/23 19:09 12/12/23 20:00 12/12/23 20:41 Temperature 97.5 F L Temperature Source Temporal Artery Scan Pulse Rate 61 Respiratory Rate 18 Blood Pressure 167/90 H Blood Pressure Mean 115 Blood Pressure Location Right Arm Blood Pressure Position Sitting O2 Sat by Pulse Oximetry 98 Oxygen Delivery Method Nasal Cannula Nasal Cannula Nasal Cannula Oxygen Flow Rate 4 4 4 Telemetry Type Telemetry Monitoring Telemetry Heart Rate Telemetry SPO2 EKG OK Interval EKG QRS Interval Telemetry Strip Reading 12/13/23 01:00 12/13/23 05:09 12/13/23 05:21 Temperature 97.8 F Temperature Source Temporal Artery Scan Pulse Rate 60 Respiratory Rate 24 H Blood Pressure 157/81 H Blood Pressure Mean 106 Blood Pressure Location Right Arm Blood Pressure Position Supine O2 Sat by Pulse Oximetry 98 98 Oxygen Delivery Method Nasal Cannula Nasal Cannula Oxygen Flow Rate 4 4 Telemetry Type Bedside Monitor Telemetry Monitoring Continues Telemetry Heart Rate 65 Telemetry SPO2 90 L EKG [place] Interval 0.14 EKG QRS Interval 0.08 Telemetry Strip Reading NSR 12/13/23 07:00 Temperature Temperature Source Pulse Rate Respiratory Rate Blood Pressure Blood Pressure Mean Blood Pressure Location Blood Pressure Position O2 Sat by Pulse Oximetry Oxygen Delivery Method Oxygen Flow Rate Telemetry Type Remote Telemetry Telemetry Monitoring Continues Telemetry Heart Rate 81 Telemetry SPO2 99 EKG OK Interval 0.11 L EKG QRS Interval 0.07 Telemetry Strip Reading sr Lab Results Lab Results: Lab Results: Last 24 Hours 12/13/23 12/12/23 04:55 08:36 WBC 14.24 H RBC 4.70 Hgb 13.4 Hct 41.3 MCV 87.9 MCH 28.5 MCHC 32.4 RDW Coeff of Trey 14.7 Plt Count 194 Neutrophils % (Manual) 73.0 Band Neutrophils % 6.0 H Lymphocytes % (Manual) 9.0 L Monocytes % (Manual) 3.0 Eosinophils % (Manual) 1.0 Reactive Lymphocytes 8.0 H Anisocytosis Not present Sodium 137.0 136.0 Potassium 4.45 4.00 Chloride 103.2 105.0 Carbon Dioxide 31.8 H 25.0 Anion Gap 6.45 10.00 BUN 13.6 15.0 Creatinine 0.67 0.60 Estimated GFR (MDRD) 107.00 122.00 BUN/Creatinine Ratio 20.29 25.00 Glucose 135.4 H 177.0 H Calcium 8.89 9.00 Total Bilirubin 0.35 0.30 AST 25.2 30.0 ALT 25.4 27.2 Alkaline Phosphatase 67.0 68.0 Total Protein 6.59 7.20 Albumin 3.31 L 3.50 Globulin 3.28 3.70 Albumin/Globulin Ratio 1.00 0.94 Additional Comments Additional Comments: I have independently reviewed and interpreted the labs/EKGs/imaging ordered d uring this hospital stay. I have reviewed outside records that are available in our EMR that pertain to medical stay including imaging/notes/labs from previous visits. EXAM: CTA CHEST FOR PE HISTORY: Hypoxia COMPARISON: None. TECHNIQUE: CTA of the chest was performed from the lung apices to the upper abdomen after Omnipaque IV contrast was administered using PE protocol. 3-D imaging was also provided. FINDINGS: No large central PE. However, limited evaluation of the segmental and subsegmental pulmonary arteries secondary to respiratory motion.. No CT findings of acute right ventricular strain or pulmonary infarct. Limited evaluation for pulmonary nodule secondary to respiratory motion. However, there are scattered ground-glass and nodular densities, some in the carrie e in bud distribution. No dense consolidation. No pleural effusion. No pneumothorax. Prominent mediastinal lymph nodes. Degenerative changes at multiple levels of the spine including pronounced b ridging anterior osteophytes. This can be seen with diffuse idiopathic skeletal hyperostosis as well as other etiologies. IMPRESSION: Limited study. Suboptimal evaluation of the segmental and subsegmental pulmonary arteries. However, no central PE or findings of acute right ventricular strain. Scattered ground-glass and nodular densities, some in the tree in bud distribution. The appearance is nonspecific but can be seen with infectious and inflammatory etiologies. Clinical follow-up with follow up imaging to ensure resolution. Prominent mediastinal lymph nodes, possibly reactive. Attention at follow-up. Please see above description and additional findings. Active Medications Active Medications: Medications Generic Name Dose Route Start Last Admin Trade Name Freq PRN Reason Stop Dose Admin Acetaminophen 650 mg 12/09/23 16:34 12/12/23 16:58 Acetaminophen 325 Mg Tablet PO 650 mg Q4H PRN Administration Mild Pain Albuterol/Ipratropium 3 ml 12/09/23 18:00 12/13/23 05:25 Ipratropium/Albuterol Vial.Neb NEB 3 ml RTQ6H VALARIE Administration Diltiazem HCl 180 mg 12/10/23 12:30 12/13/23 08:09 Diltiazem Hcl 180 Mg Cap.Er.24h PO 180 mg DAILY VALARIE Administration Enoxaparin Sodium 40 mg 12/10/23 11:00 12/13/23 08:08 Enoxaparin Sodium 40 Mg/0.4 Ml Syr SUBCUT 40 mg DAILY VALARIE Administration Guaifenesin 600 mg 12/10/23 11:00 12/13/23 08:09 Guaifenesin 600 Mg Tablet.Er PO 600 mg Q12HR VALARIE Administration Lidocaine 1 patch 12/11/23 09:00 12/13/23 08:08 Lidocaine 5% Patch TP 1 patch DAILY VALARIE Administration Methylprednisolone Sodium Succinate 40 mg 12/09/23 21:00 12/13/23 05:05 Methylprednisolone Sod Succ/Pf 40 Mg/Ml Vial IVP 40 mg Q8HR VALARIE Administration Ondansetron HCl 4 mg 12/09/23 16:34 12/11/23 12:38 Ondansetron Hcl/Pf 4 Mg/2 Ml Sdv IVP 4 mg Q6H PRN Administration Nausea / Vomiting Oseltamivir Phosphate 75 mg 12/09/23 21:00 12/13/23 08:10 Oseltamivir Phosphate 75 Mg Capsule PO 12/14/23 22:00 75 mg Q12HR VALARIE Administration Sodium Chloride 1 syr 12/11/23 21:00 12/13/23 05:04 0.9% Sodium Chloride 10 Ml Disp.Syrin IVF 1 syr Q8H VALARIE Administration Plan Plan: 1. Acute hypoxic respiratory failure in setting of influenza A - Improving. Wean O2 when able, cont tamiflu, duonebs, solumedrol, mucinex. 2. Influenza A - Plan as above. Isolation precautions. 3. Hypertension - Cont home meds DVT Prophylaxis: Lovenox Dispo: Has continued to require O2, sob with exertion, not at baseline. Possible DC tomorrow. Review Statement Review Statement: I have personally discussed and reviewed the patient's visit/currently labs/imaging/decision making with Dr. Agarwal, my supervising attending. Greater that 50 minutes spent with patient, 50% of the time spent with this patient was devoted to counseling and coordination of care.
[2023-12-13] MEDS: SOLU-MEDROL 40 MG IVP SCH (20:17)
[2023-12-14 05:37] VITALS: TEMP 97
[2023-12-14 05:38] VITALS: RESP 18
[2023-12-14 05:58] LABS: ALANINE AMINOTRANSFERASE 29.2 U/L (0-35); ALBUMIN 3.33 g/dL (3.5-5.0); ALKALINE PHOSPHATASE 63.6 U/L (53-141); ASPARTATE AMINO TRANSFERASE 26.1 U/L (14-36); BILIRUBIN,TOTAL 0.4 mg/dL (0.2-1.3); BLOOD UREA NITROGEN 15.9 mg/dL (7-17); CALCIUM 8.57 mg/dL (8.4-10.2); CARBON DIOXIDE 30.4 mmol/L (22-30.0); CREATININE 0.71 mg/dL (0.60-1.30); GLUCOSE 130.6 mg/dL (74-106); POTASSIUM 4.18 mmol/L (3.5-5.1); SODIUM 134.7 mmol/L (134.5-145); TOTAL PROTEIN 6.49 g/dL (6.3-8.2)
[2023-12-14 06:03] LABS: BASOPHILS % (AUTO) 0.2 % (0.0-3.0); EOSINOPHILS % (AUTO) 0.1 % (0.0-7.0); HEMATOCRIT 40.9 % (37.0-47.0); HEMOGLOBIN 13.2 g/dl (12.0-16.0); IMMATURE GRANULOCYTE # (AUTO) 0.7 (0.0-1.0); LYMPHOCYTES # (AUTO) 1.9 K/uL (0.60-3.4); LYMPHOCYTES % (AUTO) 14.4 (10.0-50.0); MEAN CORPUSCULAR HEMOGLOBIN 28.3 pg (27.0-31.0); MEAN CORPUSCULAR HGB CONC 32.3 (31.8-35.4); MEAN CORPUSCULAR VOLUME 87.8 fl (81.0-99.0); MONOCYTES # (AUTO) 0.7 K/uL (0.4-2.0); MONOCYTES % (AUTO) 5.6 (0-10); NEUTROPHILS # (AUTO) 9.6 K/ul (2.0-6.9); NEUTROPHILS % (AUTO) 74.7 % (42.2-75.2); PLATELET COUNT 214 10^3/uL (140-440); RDW COEFFICIENT OF VARIATION 14.6 % (11.6-14.8); RED BLOOD COUNT 4.66 10^6/ul (4.20-5.40)
[2023-12-14 08:25] VITALS: BP 154/82; PULSE 65
--- NOTE | 2023-12-14 09:41 | DCSUM ---
Admission Date Admission Date: 12/09/23 Discharge Date Discharge Date: 12/14/23 Admission Diagnosis Admission Diagnosis: 1. Acute hypoxic respiratory failure in setting of influenza A 2. Influenza A Discharge Diagnosis Discharge Diagnosis: 1. Acute hypoxic respiratory failure in setting of influenza A 2. Influenza A 3. Hypertension Hospital Provider Hospital Provider: NITHIN HODGES PA-C, [facility] Phys[facility] Primary Care Physician: AMIE LUNA APRN Summary of History and Physical Summary of History and Physical: Patient is a 63 year old female with pmhx of hypertension who presented to the ER with 3 day history of cough, sob, and overall not feeling well. She had recently traveling visiting her kids. She was noted to have a low PO2 and was placed on 2L. She tested positive for Influenza A. She was given tamiflu and steroids. Patient was very wheezy as well. Patient admitted overnight. On my evaluation this morning patient states she is feeling better but gets very SOB with minimal exertion. She is requiring 3L today. She states she has chest pain when she coughs and takes deep breaths. She is having a very productive cough. Denies tobacco use or hx of COPD. Smokes marijuana once weekly. Hospital Course Subjective: Patient was treated with solumedrol, duonebs, tamiflu, mucinex. Patient required up to 4L. Weaned to 2L at discharge. PE ruled out. She felt very weak and had sob with exertion. This improved by time of discharge. She completed tamiflu course. Will discharge on prednisone taper, duonebs prn (pt has nebulizer), tessalon perles, and home O2. Red flags on when to return discussed. Appearance: Pleasant, No Apparent Distress and Alert HEENT: MMM CVS: No Murmur Abdomen: Soft, Non-Tender and No Distention Respiratory: No Accessory Muscle Use Extremities: No Edema Vital Signs: Most Recent Vital Signs Temperature 97 F L 12/14/23 05:36 Temperature Source Temporal Artery Scan 12/14/23 05:36 Temperature Source Infrared 12/09/23 13:14 Pulse Rate 65 12/14/23 08:24 Respiratory Rate 18 12/14/23 08:24 Blood Pressure 154/82 H 12/14/23 08:24 Blood Pressure Mean 106 12/14/23 08:24 Blood Pressure Left Arm 146/85 12/09/23 17:25 Blood Pressure Location Left Arm 12/14/23 08:24 Blood Pressure Position Supine 12/14/23 08:24 O2 Sat by Pulse Oximetry 96 12/14/23 08:24 Oxygen Delivery Method Nasal Cannula 12/14/23 08:24 Oxygen Flow Rate 2 12/14/23 08:24 Fraction of Inspired Oxygen (FIO2) 1 12/12/23 08:00 Height 5 ft 6.5 in 12/11/23 09:04 Weight 241 lb 12/11/23 09:04 Telemetry Type Bedside Monitor 12/14/23 07:00 Telemetry Monitoring Continues 12/14/23 07:00 Irregular Telemetry Rate (Approximate) 50-60 BPM 12/14/23 07:00 Telemetry Heart Rate 56 L 12/14/23 07:00 Telemetry SPO2 96 12/14/23 07:00 EKG [place] Interval 0.12 12/14/23 07:00 EKG QRS Interval 0.09 12/14/23 07:00 Telemetry Strip Reading Bradycardic arrhythmia 12/14/23 07:00 Imaging: EXAM: CHEST, SINGLE VIEW HISTORY: Cough COMPARISON: 11/23/2015 IMPRESSION: Cardiomediastinal countours appear stable. There is no focal pulmonary consolidation. No pleural effusion or pneumothorax. No acute cardiopulmonary process. EXAM: CTA CHEST FOR PE HISTORY: Hypoxia COMPARISON: None. TECHNIQUE: CTA of the chest was performed from the lung apices to the upper abdomen after Omnipaque IV contrast was administered using PE protocol. 3-D imaging was also provided. FINDINGS: No large central PE. However, limited evaluation of the segmental and subsegmental pulmonary arteries secondary to respiratory motion.. No CT findings of acute right ventricular strain or pulmonary infarct. Limited evaluation for pulmonary nodule secondary to respiratory motion. Phillips conrad, there are scattered ground-glass and nodular densities, some in the tree in bud distribution. No dense consolidation. No pleural effusion. No pneumothorax. Prominent mediastinal lymph nodes. Degenerative changes at multiple levels of the spine including pronounced bridging anterior osteophytes. This can be seen with diffuse idiopathic skeletal hyperostosis as well as other etiologies. IMPRESSION: Limited study. Suboptimal evaluation of the segmental and subsegmental pulmonary arteries. However, no central PE or findings of acute right ventricular strain. Scattered ground-glass and nodular densities, some in the tree in bud distribution. The appearance is nonspecific but can be seen with infectious and inflammatory etiologies. Clinical follow-up with follow up imaging to ensure resolution. Prominent mediastinal lymph nodes, possibly reactive. Attention at follow-up. Please see above description and additional findings. Lab Results Last 24 Hours: 12/14/23 05:25 WBC 12.90 H RBC 4.66 Hgb 13.2 Hct 40.9 MCV 87.8 MCH 28.3 MCHC 32.3 RDW Coeff of Trey 14.6 Plt Count 214 Immature Gran % (Auto) 5.0 Neut % (Auto) 74.7 Lymph % (Auto) 14.4 [place] % (Auto) 5.6 Eos % (Auto) 0.1 Baso % (Auto) 0.2 Neut # (Auto) 9.6 H Lymph # (Auto) 1.9 [place] # (Auto) 0.7 Eos # (Auto) 0.0 Baso # (Auto) 0.0 Immature Gran # (Auto) 0.7 Sodium 134.7 Potassium 4.18 Chloride 101.0 Carbon Dioxide 30.4 H Anion Gap 7.48 BUN 15.9 Creatinine 0.71 Estimated GFR (MDRD) 100.00 BUN/Creatinine Ratio 22.39 Glucose 130.6 H Calcium 8.57 Total Bilirubin 0.40 AST 26.1 ALT 29.2 Alkaline Phosphatase 63.6 Total Protein 6.49 Albumin 3.33 L Globulin 3.16 Albumin/Globulin Ratio 1.05 Discharge Instructions Discharge Planning: Discharge Planning > [address] Rosario Agarwal. Discharge Medications: Medications at Discharge (Home Meds & RX) diltiazem HCl 180 mg capsule,extended release 24 hr See Rx Instructions .Route .COMPLEX #30 caps 09/24/23 Discharge Plan Discharge Discharge Orders: Discharge Patient (ONCE); Ordered 12/14/23 Ordered By: NITHIN HODGES Activity Restrictions/Additional Instructions: Follow-up with your PCP as scheduled. Take medications as prescribed. Return if worse or concerned. You completed tamiflu. Pharmacy: [facility] Diet: Cardiac Activity: As tolerated Wear O2, f/u with pcp to discuss weaning Instructions: Influenza (ED) Patient Disposition: HOME SELF-CARE Prescriptions: New ipratropium-albuterol 0.5 mg-3 mg(2.5 mg base)/3 mL Solution For Nebulization 3 ml NEB RTQ6H PRN (Reason: shortness of breath) Qty: 90 0RF prednisone 10 mg tablet 10 mg PO DIRECTED Qty: 16 0RF Rx Instructions: Take 40 mg PO x 1 day, then take 30 mg PO x2 days, then 20 mg PO x 2 days, then 10 mg PO x 2 days, then discontinue benzonatate 100 mg capsule 100 mg PO TID PRN (Reason: cough) Qty: 30 0RF Continued diltiazem HCl 180 mg capsule,extended release 24hr See Rx Instructions .ROUTE .COMPLEX Qty: 30 1RF Dose Instruction: TAKE 1 CAPSULE BY MOUTH DAILY. DO NOT OPEN OR DISSOLVE CAPSULE Rx Instructions: TAKE 1 CAPSULE BY MOUTH DAILY. DO NOT OPEN OR DISSOLVE CAPSULE Did you review [place] [employer]ICE [employer]INEER for ALL controlled substances?: Not Applicable Discussed opioids are addictive and Narcan is available by prescription or from pharmacy.: No Condition: Stable Referrals: AMIE LUNA APRN,FNPBC [Primary Care Provider] - 12/22/23 2:00 pm
== END 2023-12-14 11:00 | disposition home or self-care (01) | DRG 189 ==
LOC: ED 12:59 → SCU 12:59
PROVIDERS: ADMIT Hospitalist; ATTEND Physician Assistant
DX: Z51.81 Encounter for therapeutic drug level monitoring; R43.8 Other disturbances of smell and taste; Z20.822 Contact with and (suspected) exposure to COVID-19; R11.2 Nausea with vomiting, unspecified; Z79.899 Other long term (current) drug therapy; R19.7 Diarrhea, unspecified; J11.1 Influenza due to unidentified influenza virus with other respiratory manifestations; J96.01 Acute respiratory failure with hypoxia; I10 Essential (primary) hypertension